=== PATIENT | female | born 1935 | race Caucasian/White ===

== ENCOUNTER → 2020-12-04 12:30 | Outpatient (BNVA) | payer MEDICARE, SELFPAY | PROVIDERS: Family Provider Family Medicine; PCP Family Medicine; Visit Provider Internal Medicine Cardiovascular Disease | DX: E78.5 Hyperlipidemia, unspecified (principal); I10 Essential (primary) hypertension; I25.10 Atherosclerotic heart disease of native coronary artery without angina pectoris | CPT/HCPCS: 80053; 83735; 83880; 84443; 85025 ==

== ENCOUNTER 2021-01-02 08:06 | Outpatient (CLI) | payer MEDICARE, SELFPAY ==
--- NOTE | 2021-01-02 08:45 | USCV_ITS ---
Sebastian Mike Age: 85 Gender: F : 1935 Exam Date: 01/02/2021 09:34 Ordering Phys: Jami Gomez MD ([email or web address]) Technologist: Sandy Velez [place] [facility] [place]ication: ESSENTIAL HYPERTENSION BP: 156 / 72 HR: 60 Rhythm: Sinus Technical Quality: Adequate MEASUREMENTS (Male / Female) Normal Values 2D ECHO LV Diastolic Diameter PLAX 4.0 cm 4.2 - 5.9 / 3.9 - 5.3 cm LV Systolic Diameter PLAX 2.6 cm IVS Diastolic Thickness 1.5 cm 0.6 - 1.0 / 0.6 - 0.9 cm IVS Systolic Thickness 1.7 cm LVPW Diastolic Thickness 1.6 cm 0.6 - 1.0 / 0.6 - 0.9 cm LVPW Systolic Thickness 2.0 cm RV Chamber Size 2.9 cm LVOT Diameter 2.0 cm LV Ejection Fraction 2D Teich 64.9 % LV Ejection Fraction MOD 2C 67.2 % LV Ejection Fraction 2C AL 69.7 % LA Diameter 3.8 cm LA Width 3.7 cm LA Height 5.0 cm RA Width 2.9 cm RA Height 3.7 cm Aorta at Sinotubular Diameter 2.0 cm DOPPLER AV Peak Velocity 343.0 cm/s LVOT Peak Velocity 84.0 cm/s AV Area Cont Eq vti 1.0 cm squared AV Area Cont Eq pk 0.8 cm squared MV Area PHT 2.6 cm squared Mitral E to A Ratio 0.7 MV E' Velocity 40.0 cm/s Mitral E to MV E' Ratio 13.9 Mitral E to LV E' Lateral Ratio 10.5 Mitral E to LV E' Septal Ratio 20.7 TR Peak Velocity 240.0 cm/s TR Peak Gradient 23.0 mmHg TV Peak E Velocity 56.0 cm/s Right Atrial Pressure 3.0 mmHg Pulmonary Artery Systolic Pressu 26.0 mmHg PV Peak Velocity 101.0 cm/s RV Acceleration Time 0.1 s RV Ejection Time 0.4 s RV AcT/ET 0.3 FINDINGS Left Ventricle Normal left ventricular cavity size. Increased left ventricular wall thickness. Moderate concentric left ventricular hypertrophy. Normal left ventricular systolic function. Left ventricular ejection fraction is estimated at 65-70 %. Although no diagnostic regional wall motion abnormality could be identified, this possibility cannot be completely excluded based on the study. Grade I diastolic dysfunction (abnormal relaxation filling pattern), normal to mildly elevated filling pressures. Abnormal septal motion consistent with pacemaker. Right Ventricle Normal right ventricular size and systolic function. Right ventricular systolic pressure 31 mmHg. Pacemaker wire visualized in the right ventricle. Right Atrium Normal right atrial size. Right atrial pressure estimated at 3 mmHg. Left Atrium Mildly increased left atrial size. Mitral Valve Moderate mitral annular calcification. Aortic Valve Moderately thickened and calcified aortic valve. Moderate aortic valve stenosis, peak velocity 3.5 m/s, peak gradient 49 mmHg, mean gradient 29 mmHg, MYRNA 1 cm squared. Trace aortic valve regurgitation. Tricuspid Valve Structurally normal tricuspid valve. No tricuspid valve stenosis. Trace to mild tricuspid valve regurgitation. Pulmonic Valve Structurally normal pulmonic valve. No pulmonary valve stenosis. Trace pulmonary valve regurgitation. Pericardium No pericardial effusion. Aorta Normal size aortic root and proximal ascending aorta. Normal- sized inferior vena cava. CONCLUSIONS 1. Normal left ventricular cavity size.Moderate concentric left ventricular hypertrophy. Normal left ventricular systolic function. Left ventricular ejection fraction is estimated at 65- 70 %. Although no diagnostic regional wall motion abnormality could be identified, this possibility cannot be completely excluded based on the study. Grade I diastolic dysfunction (abnormal relaxation filling pattern), normal to mildly elevated filling pressures. 2. Moderate aortic valve stenosis, peak velocity 3.5 m/s, peak gradient 49 mmHg, mean gradient 29 mmHg, MYRNA 1 cm squared. Trace aortic valve regurgitation. 3. Normal right ventricular size and systolic function. 4. When compared to previous study dated 10/05/2013, aortic stenosis has worsened. Jami Gomez MD (Electronically Signed) Final Date: 04 January 2021 15:29 S
--- NOTE | 2021-01-02 09:30 | USCV_ITS ---
Sebastian Mike Age: 85 Gender: F : 1935 Exam Date: 01/02/2021 08:52 Ordering Phys: Jami Gomez MD ([email or web address]) Technologist: Sandy Velez [place] [facility] [place]: UNSPECIFIED LEG PAIN Risk Factors: Previous Vascular Surgery: RIGHT LEFT BP: 156.0 / 72.00 BP: 142.0/ 84.00 0 0 Waveform Velocity (cm/s) Velocity (cm/s) Waveform Biphasic 89.3 Iliac Prox 175.8 Biphasic Biphasic 95.0 Iliac Mid 178.0 Biphasic Biphasic 116.8 Iliac Distal 162.6 Biphasic Biphasic 116.0 AIRCRAFT REFUELER 104.1 Biphasic Biphasic 76.1 SFA Prox 141.0 Biphasic Biphasic 108.5 SFA Mid 134.9 Biphasic Biphasic SFA Dist Biphasic 87.1 98.4 Monophasic 36.8 POP 92.7 Biphasic Monophasic 31.9 OB/GYN NURSE 27.8 Monophasic Monophasic 24.4 DPA 45.6 Monophasic 0.8 SERGO 1.1 FINDINGS RT OB/GYN NURSE 124 RT DPA NC DUE TO PT PAIN LT OB/GYN NURSE 160 LT DPA 170 Mild to moderate diffuse plaques in the iliac and femoral arteries bilaterally Diminished resting SERGO of 0.8 on the right side with a normal resting SERGO of 1.1 on the left side CONCLUSIONS 1. Mild to moderate diffuse plaques in the iliac and femoral arteries bilaterally. 2. Slightly diminished resting SERGO on the right side, suggestive of mild peripheral artery disease. 3. Normal resting SERGO on the left side, suggesting no significant arterial obstruction 4. Compared to the study from 07/28/2017, there is significant improvement of the SERGO on the left side Dr Napoleon Campbell MD [facility] (Electronically Signed) Final Date: 04 January 2021 21:48 S
--- NOTE | 2021-01-02 10:15 | USCV_ITS ---
Sebastian Mike Age: 85 Gender: F : 1935 Exam Date: 01/02/2021 08:25 Ordering Phys: Jami Gomez MD ([email or web address]) Technologist: Sandy Velez [place] [facility] [place]ication: OCCLUSION AND STENOSIS OF CAROTID ARTERIES Risk Factors: Previous Vascular Surgery: Right Brachial BP: / Left Brachial BP: / Right Left Velocity (cm/s) Spectral Plaque Velocity (cm/s) Spectral Plaque Syst/Diast Broadening Syst/Diast Broadening 75.30/ 8.80 Prox CCA 52.50 / 8.60 84.20/ 11.60 Mid CCA 66.80 / 10.80 67.30/ 11.00 Distal CCA 73.80 / 11.70 133.63/23.83 Prox ICA 110.40/ 15.80 146.00/18.60 Mid ICA 102.50/ 19.70 116.50/20.20 Distal ICA 90.70 / 15.80 122.60 ECA 249.00 1.74 ICA/CCA 1.65 Antegrade Vertebral Antegrade 51.30/ 9.30 cm/s 32.90/ 5.90 cm/s Bi Subclavian Bi 129.5 268.6 0 0 FINDINGS Moderate dense plaques of the right bifurcation and proximal lower carotid artery. Mild to moderate dense plaques at the left bifurcation and internal carotid artery Intimal thickening and minimal plaques in the common carotid arteries bilaterally Antegrade flow in the vertebral arteries bilaterally Elevated velocity flow turbulence in the left subclavian artery CONCLUSIONS 1. Moderate dense plaques of the right bifurcation and proximal lower carotid artery with elevated velocity, consistent with a 50 to 69% stenosis. 2. Mild to moderate dense plaques at the left bifurcation and internal carotid artery with velocity elevation, consistent with less than 50% stenosis. 3. Elevated velocity in the external carotid artery on the left side, suggestive of hemodynamically significant stenosis. 4. Elevated velocity and flow turbulence in the left subclavian artery, suggestive of hemodynamically significant stenosis No similar previous studies are available for comparison Dr Napoleon Campbell MD [facility] (Electronically Signed) Final Date: 04 January 2021 21:43 S
== END 2021-01-02 08:07 | disposition home or self-care (01) ==
PROVIDERS: PCP Family Medicine; Visit Provider Internal Medicine Cardiovascular Disease
DX: M79.606 Pain in leg, unspecified (principal); I65.23 Occlusion and stenosis of bilateral carotid arteries; I10 Essential (primary) hypertension; I50.9 Heart failure, unspecified; I35.0 Nonrheumatic aortic (valve) stenosis; I70.8 Atherosclerosis of other arteries
CPT/HCPCS: 93306; 93880; 93925

== ENCOUNTER → 2021-06-04 11:01 | Outpatient (BNVA) | payer MEDICARE, SELFPAY | PROVIDERS: PCP Family Medicine; Visit Provider Internal Medicine Cardiovascular Disease | DX: Z95.0 Presence of cardiac pacemaker (principal) ==

== ENCOUNTER 2021-07-06 | Outpatient (CLI) | payer MEDICARE, SELFPAY | END 2021-07-06 23:59 | disposition home or self-care (01) | LOC: RAD 11-02 14:24 | PROVIDERS: PCP Family Medicine; Visit Provider Internal Medicine Cardiovascular Disease | DX: I13.0 Hypertensive heart and chronic kidney disease with heart failure and stage 1 through stage 4 chronic kidney disease, or unspecified chronic kidney disease (principal); E11.22 Type 2 diabetes mellitus with diabetic chronic kidney disease; N18.9 Chronic kidney disease, unspecified; I50.9 Heart failure, unspecified; Z79.84 Long term (current) use of oral hypoglycemic drugs; I35.0 Nonrheumatic aortic (valve) stenosis; Z95.1 Presence of aortocoronary bypass graft; Z95.0 Presence of cardiac pacemaker | CPT/HCPCS: 99214 ==

== ENCOUNTER → 2021-07-06 13:00 | Outpatient (BNVA) | payer MEDICARE, SELFPAY | PROVIDERS: PCP Family Medicine; Visit Provider Internal Medicine Cardiovascular Disease | DX: I35.0 Nonrheumatic aortic (valve) stenosis (principal); E78.5 Hyperlipidemia, unspecified; I10 Essential (primary) hypertension | CPT/HCPCS: C8929 ==

== ENCOUNTER → 2021-08-06 09:27 | Outpatient (BNVA) | payer MEDICARE, SELFPAY | PROVIDERS: PCP Family Medicine; Visit Provider Internal Medicine Cardiovascular Disease | DX: I35.0 Nonrheumatic aortic (valve) stenosis (principal); I50.9 Heart failure, unspecified | CPT/HCPCS: 80048; 85025; 85610 ==

== ENCOUNTER 2021-08-11 07:11 | Outpatient (CLI) | payer MEDICARE, SELFPAY ==
[2021-08-11] VITALS (50 sets, daily range): BP systolic 108–216; BP diastolic 46–102; PULSE 62–102; RESP 16–33; TEMP 36.6–36.9; O2SAT 93–99; BMI 26.8
--- NOTE | 2021-08-11 07:30 | XACV_ITS ---
Exam Room: [facility] Ht: 165 cm Wt: 73 kg BSA: 1.85 m2 Gender: Female : 1935 Any Known Allergies: Other Exam Priority: Routine Procedure(s): Procedure Description: Diagnostic procedure Procedure Description: PCI procedure Procedure Description: Left Heart Catheterization Procedure Description: Drug Eluting Coronary Stent Procedure Description: Miscellaneous Procedure Description: ACT Procedure Description: Coronary Angiography Diagnostic Cath Status: Elective Diagnostic Findings * Right heart cath findings: RA pressure: 9/13/9 mmHg RV pressure: 58/0 /10 mmHg PA pressure: 44/20/31 mmHg PCW: 20/18/16 mmHg Transpulmonary gradient: 15 mmHg Cardiac output 8 L/min Cardiac index 4.1 PVR: 2 Wood units. * Left main artery: No significant disease LAD: Mid vessel is totally occluded. Distally competitive flow noted from GOLD Left circumflex artery: Occluded in distal segment RCA: Occluded SVG to RCA: Patent SVG to OM: Has severe proximal 70% proximal stenosis. Severe 70 to 80% mid segment stenosis. Status post successful revascularization with RIO x2. GOLD to LAD: Patent . * INDICATION: Dyspnea on exertion/ chest pain. * Coronary angiography shows right dominance. PCI Status: Elective PCI Indication: Other Interventional Findings * Procedure detail: We engaged SVG to OM with JR4 guide catheter. IV heparin was administered to maintain ACT above 250S. 0.014 run-through guidewire was used to cross the stenosis. We placed a 3.0 x 18 mm resolute Marium drug-eluting stent in mid SVG graft. Ostially guide engagement was causing pressure dampening. We placed 3.0X12 mm resolute [place] stent in ostial SVG. At this time final angiogram was performed that showed excellent stent expansion and no residual stenosis. 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 Conclusions 1. Left main artery: No significant disease LAD: Mid vessel is totally occluded. Distally competitive flow noted from GOLD Left circumflex artery: Occluded in distal segment RCA: Occluded SVG to RCA: Patent SVG to OM: Has severe proximal 70% proximal stenosis. Severe 70 to 80% mid segment stenosis. Status post successful revascularization with RIO x2. GOLD to LAD: Patent . 2. Mild pulmonary hypertension. 3. Severe proximal and mid SVG to OM stenosis s/p successful PCI with RIO x 2. Recommendations * Aspirin and plavix for at least 1 year. * Transfer to [facility]. * High intensity statin therapy. * Outpatient cardiology follow up in 4 weeks. Interventional RX Recommendation: PCI w/o planned CABG Diagnostic RX Recommendation: PCI w/o planned CABG Anticoagulation: Heparin Pressures Phase:Rest AO : 150 / 57 ( 97 ) @ 11:11:00 AM 132 / 62 ( 95 ) @ 11:22:00 AM 118 / 51 ( 81 ) @ 11:44:00 AM 119 / 45 ( 77 ) @ 12:00:00 PM 132 / 33 ( 73 ) @ 12:00:00 PM LV : 169 / -7 / 7 @ 11:59:00 AM 170 / -7 / 8 @ 12:00:00 PM RV : 58 / 0 / 10 @ 10:59:00 AM PA : 44 / 21 ( 31 ) @ 10:56:00 AM RA : a wave = 9 v wave = 13 mean = 9 @ 11:02:00 AM PCW : a wave = 20 v wave = 18 mean = 16 @ 10:55:00 AM O2 Content Phase:Rest PA : O2 Content O2: 81.5 @ 11:11:00 AM Saturations Phase:Rest AO : 97 @ 11:59:00 AM RA : 83 @ 11:44:00 AM RV : 82 @ 11:22:00 AM PA : 82 @ 11:11:00 AM IVC : 84 @ 12:00:00 PM SVC : 84 @ 12:00:00 PM Cardiac Output Phase:Rest Tabatha : 6 @ ::41 AM Tabatha Cardiac Index: 3 @ ::41 AM Flow Phase:Rest Qp : 6 @ ::41 AM Qs : 7 @ ::41 AM Valves Phase:DefaultPhase AV : 50.0 @ ::41 AM AV Mean Gradient: 32.0 @ ::41 AM AV Flow: 224 @ :: AM AV Area: 0.9 @ ::41 AM AV Area Index: 0.49 @ ::41 AM Clinical Evaluation EBL: 5mL-10mL Procedural Details Procedure Consent Obtained. Admit Source: Out Patient. Pre-Procedure Time Out. Identified patient by full name and date of as verbalized by the patient/guarantor. Does the consent match the physician's order: Yes. Accurate & Complete Informed Consent: Yes. Inpatient/Outpatient History & Physical on Chart: Yes. If H&P is completed, is and addenduem needed: N/A; If yes, is the addendum complete: N/A. Visualize and Verify Site with Patient/Guarantor: N/A. Relevant Radiology Images available: N/A. Pre-op teaching completed and patient verbalized understanding. The risks, benefits, and alternatives of sedation and/or procedure were discussed by physician. The patient agrees to continue. Procedure started. [facility] Clinical Fraility Score: 3: Managing Well. 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 Chest Pain Symptom Assessment: Atypical Angina. Correct patient, site and procedure confirmed by cath team. Current diagnosis: Chest Pain. PERRLA. Strong, equal hand facility technician bilaterally. Lungs clear x 5 lobes. IV Site on Arrival: 20 gauge in the left anticubital. IV Fluids: 0.9% NaCl at KVO. 0 mL infused prior to produce laborer. Pre Procedural Pulses: bilateral dorsalis pedis was 1+. Pre Procedural Pulses: bilateral radial was 2+. Oxygen started at 2liters/min via nasal canula. left groin was prepped with chloroprep then draped in the usual sterile fashion. right groin was prepped with chloroprep then draped in the usual sterile fashion. Physician notified. Baseline sample Acquired. HR: 77 BPM. Physician arrived. Physician scrubbed in. Immediate Pre-Procedure Time Out. Correct Patient: Yes; Correct Procedure: Yes; Correct Site: Yes; Correct Patient Position: Yes; Correct Supplies: Yes; Dried Flammable Prep: Yes; Blood Products Available: n/a. Lidocaine 1% infiltrated to the right groin. Arterial access obtained with micropuncture set. Venous access obtained with a micropuncture set. Goodman-Tona MON catheter inserted. Goodman Mon positioned in the SVC. Pressure measurements obtained. Goodman-Tona out. A 5 portuguese JL4 catheter in over wire. Multiple views taken of left coronary artery. Catheter out. A 5 portuguese JR4 catheter in over wire. Multiple views taken of right coronary artery. [place] right vessel closed. SVG's to OM visualized and patent. SVG's to RCA visualized and patent. GOLD to LAD visualized. Catheter out. 6 portuguese JR 4 guide catheter was inserted over the wire. Runthrough guidewire was advanced through the guide catheter to lesion in the SVG to OM. Inflation Number : 1 A LAURYN R MARIUM 3.0X18 RIO -Lot Number# [id number] Exp 12/27/2023 was prepped and advanced across the Aorta Left -> 1st Ob Tati. The stent was deployed at 12 AGUEDA for 0:25 seconds. Stent inserted to lesion in the OM. Stent balloon out over wire. Results checked. Wire out. Runthrough guidewire was advanced through the guide catheter to lesion in the OM. Stent inserted to lesion in the SVG to OM. Inflation Number : 2 A MDT R MARIUM 3.0X12 RIO -Lot Number# [id number] Exp 09/11/2023 was prepped and advanced across the Aorta Left -> 1st Ob Tati. The stent was deployed at 12 AGUEDA for 0:18 seconds. Stent balloon out over wire. Results checked. Glidewire inserted. Wire and catheter removed. ACT drawn. Results 332 seconds. Therapeutic limits - pre-heparin administration 90-150 seconds and monitoring heparin during a vascular procedure >250 seconds. A 5 portuguese JR4 catheter in over wire. Catheter out. A 5 portuguese AL1 catheter in over wire. Catheter out. A 5 portuguese Angled Pig catheter in over wire. Catheter out. A 5 portuguese JR4 catheter in over wire. Wire removed. EDP Sample taken: LV 169/-8,7; HR: 85 BPM; SpO2: 93%. Pullback taken: LV 170/-8,8; AO 119/45(77); Mean: 32mmHg, Peak to Peak: 50mmHg, SEP: 26sec/min; HR: 85 BPM; SpO2: 94%. ACT drawn. Results 250 seconds. Therapeutic limits - pre-heparin administration 90-150 seconds and monitoring heparin during a vascular procedure >250 seconds. Catheter and wire removed. A Suture was successful obtaining hemostatsis at the Right Femoral vein insertion site. Post Procedure: Pulses reassessed and unchanged. PERRLA. Strong, equal hand facility technician bilaterally. No VTE prophylaxis required. PCI Indication: New Onset Angina. Total IV fluids: 143 mL. Medication's Wasted: Heparin = 1000 u. Medication's Wasted: Lidocaine 1% = 3 mL. Medication's Wasted: Other = Fentanyl 75 mcg. Post-op diagnosis: Severe SVG to OM stenosis, Moderate to severe aortic stenosis. Complications: none. Estimated blood loss: 5mL-10mL. Responsiveness - Normal response to verbal stimuli; alert and oriented, PERRLA. Airway - Unaffected, no intervention required; spontaneous ventilation. Circulation: W/N/L, pulses unchanged. Nausea/Vomiting: No. Procedure completed. Patient transferred by bed to ICU. Vital chart was stopped. Access Site Site: Right Femoral artery Sheath Size: 6 Fr Hemostasis Success: Unsuccessful Site: Right Femoral vein Sheath Size: 6 Fr Hemostasis Method: Suture Hemostasis Success: Successful Procedure Medications Start: 9:20 AM Stop: 9:20 AM Medication: Versed Amount: 1 mg Route: I.V. Start: 9:20 AM Stop: 9:20 AM Medication: Fentanyl Amount: 50 mcg Route: I.V. Start: 9:20 AM Stop: 9:20 AM Medication: 0.9% Saline Amount: 75 ml/hr Route: I.V. drip Start: 9:32 AM Stop: 9:32 AM Medication: Hydralazine Amount: 10 mg Route: I.V. Start: 9:34 AM Stop: 9:34 AM Medication: Versed Amount: 1 mg Route: I.V. Start: 9:36 AM Stop: 9:36 AM Medication: Fentanyl Amount: 25 mcg Route: I.V. Start: 9:39 AM Stop: 9:39 AM Medication: Hydralazine Amount: 10 mg Route: I.V. Start: 9:59 AM Stop: 9:59 AM Medication: Versed Amount: 1 mg Route: I.V. Start: 10:11 AM Stop: 10:11 AM Medication: Versed Amount: 1 mg Route: I.V. Start: 10:27 AM Stop: 10:27 AM Medication: Fentanyl Amount: 25 mcg Route: I.V. Start: 10:30 AM Stop: 10:30 AM Medication: Versed Amount: 1 mg Route: I.V. Start: 10:33 AM Stop: 10:33 AM Medication: Nitrogylcerin Amount: 2 Sprays Route: S.L. Start: 10:39 AM Stop: 10:39 AM Medication: Heparin Amount: 7000 units Route: I.V. Start: 10:47 AM Stop: 10:47 AM Medication: Versed Amount: 1 mg Route: I.V. Start: 10:55 AM Stop: 10:55 AM Medication: Fentanyl Amount: 25 mcg Route: I.V. Start: 11:04 AM Stop: 11:04 AM Medication: Heparin Amount: 1000 units Route: I.V. Start: 11:08 AM Stop: 11:08 AM Medication: Plavix Amount: 600 mg Route: P.O. I, the attending physician, have reviewed and verified all procedure medications. Yes, all medications given per verbal order History/Risk Factors Hypertension: Yes Dyslipidemia: Yes Peripheral Arterial Disease (PAD): Yes Myocardial Infarction (ID): Yes Obesity: No Renal Disease: No Prior Interventions PCI: No CABG: No Valve Surgery: No Report Signatures Finalized by Andrew Chang MD on 08/26/2021 08:36 PM
--- NOTE | 2021-08-11 08:56 | W.PM.OPSFHP ---
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 She complains of exertional shortness of breath and intermittent chest pains. Medications/Allergies* Home Medications Medication Instructions Recorded Confirmed Type lisinopril 10 mg tablet 10 mg PO DAILY 06/17/19 08/11/21 History loperamide 2 mg capsule 2 mg PO Q4H PRN 06/17/19 08/10/21 History metoprolol tartrate 25 mg tablet 25 mg PO BID 06/17/19 08/11/21 History furosemide 40 mg tablet 20 mg PO DAILY tab 07/06/21 08/11/21 History glipizide 5 mg tablet 7.5 mg PO DIRECTED tab 07/06/21 08/11/21 History Allergies/Adverse Reactions Allergy/AdvReac Type Severity Reaction Status Date / Time Iodinated Contrast Media Allergy Unknown Unknown Verified 03/05/21 10:30 iodine Allergy Unknown Unknown Verified 03/05/21 10:30 Lgrinml-DLA-TcA Reductase Allergy Unknown Unknown Verified 03/05/21 10:30 Inhibitor [Frwyhfg-Ngb-Rrz Reductase Inhibitor] Current Medications: Generic Name Dose Route Start Last Admin Trade Name Freq PRN Reason Stop Dose Admin Sodium Chloride 1,000 mls @ 50 mls/hr 08/11/21 07:30 08/11/21 08:41 Sodium Chloride 0.9% IV 08/12/21 03:29 Not Given .Q20H ONE Pertinent History/Comorbid Conditions* Medical History (Updated 12/05/20 @ 20:11 by Jami Gomez MD) Aortic stenosis ASHD (arteriosclerotic heart disease) Carotid stenosis, bilateral CKD (chronic kidney disease) Diabetes Dyslipidemia Essential hypertension History of colon cancer Left bundle branch block Peripheral arterial disease Renal artery stenosis Second degree AV block, Mobitz type II Surgical History (Updated 06/07/20 @ 16:03 by Jami Gomez MD) S/P CABG (coronary artery bypass graft) S/P cholecystectomy S/P hysterectomy S/P PTCA (percutaneous transluminal coronary angioplasty) Status cardiac pacemaker Status post tubal ligation Family History (Updated 06/17/19 @ 11:25 by Amanda Gomez RN) Diabetes Grandfather CAD (coronary artery disease) Hypertension Daughter Social History Smoking and tobacco status: never smoked Pertinent Exam Findings alert, oriented x 3, clear to auscultation bilaterally and regular rate & rhythm Conscious Sedation Assessment PATIENT ASSESSED PRIOR TO SEDATION, WITH NO CHANGE NOTED: Yes AIRWAY EVAL/ANESTHESIA PLAN: normal airway (Airway 2), ASA III, Monitored Anesthesia and Local Anesthesia Recommendations Surgery/Procedure today Coding Level of Care Code Acute University Administrative Assistant for Joe Barron
[2021-08-11] MEDS: nitroglycerin drip 50 MG/250 ML PREMIX IV (12:09)
[2021-08-11 16:30] LABS: Glucose Point of Care 291 mg/dL (70-110)
[2021-08-11 17:36] LABS: Partial Thromboplastin Time 44.7 SECONDS (23.9-36.7)
[2021-08-11] MEDS: insulin lispro 100 unit/1 mL SUBCUT (17:36)
--- NOTE | 2021-08-11 19:01 | PC.NURSE ---
Venous and artiral sheath remove at this time
[2021-08-11] MEDS: metoprolol tartrate 25 mg Tablet PO (20:17)
[2021-08-11 20:22] LABS: Glucose Point of Care 270 mg/dL (70-110)
--- NOTE | 2021-08-11 20:50 | PC.NURSE ---
1,000 mL NS bag infused at this time.
[2021-08-12 00:03] VITALS: BP 122/45; PULSE 60; RESP 18; O2SAT 95
--- NOTE | 2021-08-12 00:10 | PC.NURSE ---
Patient ambulated with nurse. VSS. Dressing to right groin dry and intact. No hematoma noted at this time. Distal pulses and skin WNL.
[2021-08-12 02:58] VITALS: BP 125/53; PULSE 68; RESP 15; O2SAT 96
[2021-08-12 03:55] VITALS: PULSE 61
[2021-08-12 06:10] LABS: Basophils % 0.2 %; Eosinophils % 0.2 %; Hematocrit 35.5 % (37.0-47.0); Hemoglobin 11.4 g/dL (11.5-15.3); Lymphocytes # 2.1 10^3/uL (0.8-4.8); Lymphocytes % 16.7 %; Mean Corpuscular HGB Conc 32.1 g/dL (30.0-36.0); Mean Corpuscular Hemoglobin 28.9 pg (28.0-34.0); Mean Corpuscular Volume 89.9 fl (81-99); Mean Platelet Volume 10.8 fL (7.4-10.4); Monocytes # 1.2 10^3/uL (0.2-0.9); Monocytes % 9.2 %; Neutrophils % 73.2 %; Nucleated Red Blood Cells % 0 %; Platelet Count 232 10^3/cmm (130-400); Red Blood Count 3.95 10^6/uL (4.1-5.3); Red Cell Distribution Width 14.3 % (12.1-15.1); White Blood Count 12.6 10^3/uL (4.0-10.0)
[2021-08-12 06:21] LABS: Glucose Point of Care 192 mg/dL (70-110)
[2021-08-12 06:28] LABS: Anion Gap 13.4 (5-19); Blood Urea Nitrogen 43 mg/dL (8-23); Calcium 8.9 mg/dL (8.5-10.5); Carbon Dioxide 22 mmol/L (22-29); Chloride 108 mmol/L (98-107); Cholesterol 162 mg/dL (0-200); Glucose 189 mg/dL (65-115); HDL Cholesterol 45 mg/dL (60-100); LDL Cholesterol Calculated 81 mg/dL (50-129); Magnesium 2.2 mg/dL (1.7-2.3); Osmolality Calculated 304 mOsm/kg (285-295); Potassium 4.4 mmol/L (3.5-5.1); Sodium 139 mmol/L (136-145); Triglycerides 178 mg/dL (0-150)
[2021-08-12 07:04] VITALS: BP 147/57; PULSE 62; RESP 18; TEMP 36.7; O2SAT 96
[2021-08-12 08:29] LABS: Estmated Average Glucose 160; Hemoglobin A1C 7.2 % (4.0-6.0)
[2021-08-12] MEDS: clopidogrel 75 mg Tablet PO (09:13)
[2021-08-12] MEDS: aspirin 81 mg Chew Tablet PO (09:13)
[2021-08-12] MEDS: metoprolol tartrate 25 mg Tablet PO (09:13)
[2021-08-12] MEDS: ezetimibe 10 mg Tablet PO (09:13)
--- NOTE | 2021-08-12 09:30 | PM.SDS ---
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 She complains of exertional shortness of breath and intermittent chest pains. Review of Systems Const: Reports: fatigue (increased); Denies: fever(s) or chills Eyes: Denies: change in vision Card: Reports: lightheadedness and dyspnea on exertion (increased); Denies: chest pain, palpitations, swelling of feet/ankles or orthopnea Resp: Denies: dyspnea, productive cough or non-productive cough GI: Denies: abdominal pain, nausea or vomiting Musc: Reports: neck pain and joint pain; Denies: back pain Neuro: Denies: headache(s) or dizziness Psych: Denies: anxiety or depression Sunil/Lymph: Reports: easy bruising; Denies: easy bleeding Home Meds/Allergies Home Medications and Allergies Home Medications Medication Instructions Recorded Confirmed Type lisinopril 10 mg tablet 10 mg PO DAILY 06/17/19 08/11/21 History loperamide 2 mg capsule 2 mg PO Q4H PRN 06/17/19 08/10/21 History metoprolol tartrate 25 mg tablet 25 mg PO BID 06/17/19 08/11/21 History furosemide 40 mg tablet 20 mg PO DAILY tab 07/06/21 08/11/21 History glipizide 5 mg tablet 7.5 mg PO DIRECTED tab 07/06/21 08/11/21 History Allergies Allergy/AdvReac Type Severity Reaction Status Date / Time Iodinated Contrast Media Allergy Unknown Unknown Verified 03/05/21 10:30 iodine Allergy Unknown Unknown Verified 03/05/21 10:30 Lrswmfp-LAT-RqJ Reductase Allergy Unknown Unknown Verified 03/05/21 10:30 Inhibitor [Gzrfurl-Duz-Oxi Reductase Inhibitor] PFSH Acute PFSH: Medical History Aortic stenosis ASHD (arteriosclerotic heart disease) Carotid stenosis, bilateral CKD (chronic kidney disease) Diabetes Dyslipidemia Essential hypertension History of colon cancer Left bundle branch block Peripheral arterial disease Renal artery stenosis Second degree AV block, Mobitz type II Surgical History S/P CABG (coronary artery bypass graft) S/P cholecystectomy S/P hysterectomy S/P PTCA (percutaneous transluminal coronary angioplasty) Status cardiac pacemaker Status post tubal ligation Family History Grandfather Diabetes Daughter Hypertension Other CAD (coronary artery disease) Social History Smoking and tobacco status: never smoked Vitals/I&O/Wt Last Vital Signs Temp 98.0 F 08/12/21 07:04 Pulse 62 08/12/21 07:04 Resp 18 08/12/21 07:04 BP 147/57 08/12/21 07:04 Pulse Ox 96 08/12/21 07:04 08/11/21 08/12/21 08/12/21 22:59 06:59 14:59 Intake Total 253 / 493 200 / 693 Output Total 800 / 800 Balance -547 / -307 200 / -107 Weight last 48 hrs Weight 161 lb Physical Exam Narrative: GENERAL: AAOx3, No FND HEENT: Exam within normal limits. NECK: Supple without jugular vein distention. The carotid upstroke is normal without bruits. BACK: Exam normal. LUNGS: Clear except basal final rales bilaterally. No wheezez or rales HEART: Regular rate and rhythm.? Grade 3/6 harsh cresendo systolic murmur with radiation to carotids. soft S2 ABDOMEN: Benign without organomegaly or tenderness. EXTREMITIES: No edema.? 1+ DP and PT in the lower extremities, Right groin with no significant bruising or hematoma NEUROLOGIC: Exam normal. Hospital Course Hospital Course Patient underwent left and right heart cathetarization. She underwent RIO placement to SVG to OM graft. GOLD to LAD and SVG to PDA were patent. Mean gradient through AV of 32 mm Hg. She did well overnight. No jaw/chest pain. Discharge Summary She was started on plavix 75 mg daily and zetia 10 mg daily. Lipid panel and HbA1C reviewed with patient. Plan to follow up with Adriana in 1 week and plan to refer her for TAVR at [place]. SSS Data Data Completed and Pending: Pending at discharge Category Date Time Status MULTIMEDIA EDUCATIONAL SPECIALIST request for service Routin e Exams 08/11/21 07:30 Taken Discharge Plan Discharge Patient Disposition: Home Prescriptions: New clopidogrel 75 mg Tablet 75 mg PO DAILY Qty: 90 2RF nitroglycerin 0.4 mg Tablet, Sublingual 0.4 mg sublingual Q5M PRN (Reason: Chest Pain) Qty: 30 6RF Children's Aspirin 81 mg Tablet,Chewable 81 mg PO DAILY Qty: 30 6RF ezetimibe 10 mg Tablet 10 mg PO DAILY Qty: 30 3RF Continued metoprolol tartrate 25 mg tablet 25 mg PO BID 0RF lisinopril 10 mg tablet 10 mg PO DAILY 0RF loperamide 2 mg capsule 2 mg PO Q4H PRN (Reason: Diarrhea) 0RF furosemide 40 mg tablet 20 mg PO DAILY 0RF glipizide 5 mg tablet 7.5 mg PO DIRECTED 0RF Rx Instructions: 5mg in AM and 2.5mg HS Discontinued diphenhydramine HCl [Benadryl Allergy] 25 mg tablet 25 mg PO DIRECTED PRN (Reason: Dye allergy) Qty: 2 0RF Rx Instructions: Take 50mg (2 tabs) 1 hr before angiogram prednisone 50 mg tablet 50 mg PO DIRECTED PRN (Reason: Dye allergy) Qty: 6 0RF Rx Instructions: Take 50mg (1 tab) 13hrs, 7hrs, & 1hr prior to angiogram Discharge Orders: Discharge Order (Routine); Ordered 08/12/21 Ordered By: Jami Gomez Other Ambulatory Orders: Basic Metabolic Panel (Routine) Timeframe: 1 Week Facility: [facility] - Location: Lab - Main Lab Ordered By: Jami Gomez Referrals: Adriana Guerra FNP [Nurse Practitioner] - 08/19/21 2:30 pm (You have a post procedure follow up with ARIEL Dobson at [facility] on August 19 at 2:30pm) Jami Gomez MD [Physician] - 10/05/21 2:30 pm (You have a cardiology followup with Dr. Gomez at [facility] on MondayOctober 05 at 2:30pm) Diet: Cardiac Activity: Increase activity as tolerated Patient Instructions: Aspirin (By mouth) (Magdalena Extra Strength, Magdalena Aspirin Children's,..., Nitroglycerin, Rapid Release (By mouth) (NitroMist, Nitrolingual,..., Clopidogrel (By mouth) (Plavix), Ezetimibe (By mouth) (Zetia), Coronary Angioplasty (DC) Activity Restrictions/Additional Instructions: Do not lift anything more than 5 lbs for 1 week. Keep the site dry and clean Take medications as prescribed and follow up as scheduled. Discharge Date/Time: 08/12/21 11:30 Attestations Medical Necessity Statement*: Stable to be discharged home Time Spent in Patient Care*: less than 30 min Quality Metrics Clinical Quality Measures: [ No reported AMI, CVA or VTE this stay] Coding Level of Care Code Acute Physician Surgeon for Joe Barron
--- NOTE | 2021-08-12 11:31 | PC.NURSE ---
Discharge Note Patient discharged to Home via private vehicle accompanied by son. 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 Mobile pharmacy medications and/or prescriptions provided. Belongings/home medications returned.
== END 2021-08-12 11:30 | disposition home or self-care (01) ==
LOC: CCL 07:18 → CSU 08:23
PROVIDERS: Internal Medicine; PCP Family Medicine; Visit Provider Internal Medicine Cardiovascular Disease
DX: R06.02 Shortness of breath (principal); R07.9 Chest pain, unspecified; E78.5 Hyperlipidemia, unspecified; I44.7 Left bundle-branch block, unspecified; I25.10 Atherosclerotic heart disease of native coronary artery without angina pectoris; Z95.1 Presence of aortocoronary bypass graft; Z95.0 Presence of cardiac pacemaker; E11.22 Type 2 diabetes mellitus with diabetic chronic kidney disease; I12.9 Hypertensive chronic kidney disease with stage 1 through stage 4 chronic kidney disease, or unspecified chronic kidney disease; N18.9 Chronic kidney disease, unspecified; Z85.038 Personal history of other malignant neoplasm of large intestine; Z82.49 Family history of ischemic heart disease and other diseases of the circulatory system; Z83.3 Family history of diabetes mellitus
CPT/HCPCS: 36415; 36416; 80048; 80061; 82962; 83036; 83735; 85025; 85347; 85730; 93461; 96360; 96361; 96372; 99152; 99153; C1751; C1769; C1874; C1887; C1894; C9600; J0360; J1644; J1815; J2250; J3010; J3490; J7030; Q9967

== ENCOUNTER 2021-08-25 13:26 | Outpatient (CLI) | payer MEDICARE, SELFPAY ==
[2021-08-25 14:11] LABS: Anion Gap 15.2 (5-19); Blood Urea Nitrogen 44 mg/dL (8-23); Calcium 9.8 mg/dL (8.5-10.5); Carbon Dioxide 26 mmol/L (22-29); Chloride 98 mmol/L (98-107); Glucose 165 mg/dL (65-115); Osmolality Calculated 293 mOsm/kg (285-295); Potassium 5.2 mmol/L (3.5-5.1); Sodium 134 mmol/L (136-145)
[2021-08-25 18:07] LABS: Magnesium 2.3 mg/dL (1.7-2.3); NT Pro B Type Natriuretic Pept 1686 pg/mL (0-450)
== END 2021-08-25 13:27 | disposition home or self-care (01) ==
LOC: LAB 13:32
PROVIDERS: PCP Family Medicine; Visit Provider Internal Medicine Cardiovascular Disease
DX: I11.0 Hypertensive heart disease with heart failure (principal); I50.9 Heart failure, unspecified; N18.9 Chronic kidney disease, unspecified; I25.10 Atherosclerotic heart disease of native coronary artery without angina pectoris; Z98.61 Coronary angioplasty status; I73.9 Peripheral vascular disease, unspecified; Z95.0 Presence of cardiac pacemaker; I25.810 Atherosclerosis of coronary artery bypass graft(s) without angina pectoris; I35.0 Nonrheumatic aortic (valve) stenosis; R06.02 Shortness of breath
CPT/HCPCS: 80048; 83735; 83880; 99213

== ENCOUNTER → 2021-09-03 10:56 | Outpatient (BNVA) | payer MEDICARE, SELFPAY | PROVIDERS: PCP Family Medicine; Visit Provider Internal Medicine Cardiovascular Disease | DX: Z45.010 Encounter for checking and testing of cardiac pacemaker pulse generator [battery] (principal) | CPT/HCPCS: 93280 ==

== ENCOUNTER 2021-10-08 11:58 | Emergency (ER) | payer MEDICARE, SELFPAY ==
[2021-10-08 12:29] VITALS: BP 183/69; PULSE 69; RESP 16; TEMP 36.7; O2SAT 97; BMI 23.9
--- NOTE | 2021-10-08 12:34 | USR_ITS ---
PROCEDURE INFORMATION: Exam: US Duplex Left Lower Extremity Arteries Or Arterial Bypass Grafts Exam date and time: 10/08/2021 1:54 PM Age: 85 years old Clinical indication: Other: Cold lt foot; Prior surgery; Surgery date: 3-7 days post-operative; Surgery type: Tavr ao replacement; Patient HX: PT has had test before and today there is increased change; Additional info: L leg numbness TECHNIQUE: Imaging protocol: Left Real-time duplex scan of the arteries or arterial bypass grafts of the left lower extremity with 2-D verma scale, color Doppler flow and spectral waveform analysis. Images documented and saved. COMPARISON: Per ultrasound worksheet report comparisons made to ultrasound duplex left lower extremity arteries dated January 2021. FINDINGS: Left external iliac artery: Monophasic waveforms within the external iliac artery with elevated peak systolic velocity at the distal iliac artery of 181 cm/s. Left common femoral artery: No occlusion or significant stenosis. Monophasic waveform. Left superficial femoral artery: No occlusion or significant stenosis. Elevated peak systolic velocity in the proximal superficial femoral artery up to 239 cm/s. Monophasic waveform. Left popliteal artery: No occlusion or significant stenosis. Monophasic waveform. Left calf/foot arteries: Occluded left posterior tibial artery. Dorsalis pedis flow is also diminutive and monophasic. US/[place] [id number] IMPRESSION: Occluded left posterior tibial artery. Dorsalis pedis flow is also diminutive and monophasic. Monophasic waveforms also noted throughout the left lower extremity with patulous areas of increased peak systolic velocity. Per prior reports these findings are new from most recent comparison, but the comparison images were not available for review at the time of this report.
[2021-10-08 12:47] VITALS: BP 178/72; PULSE 73; RESP 16; TEMP 36.6; O2SAT 99
--- NOTE | 2021-10-08 13:51 | ED_ITS ---
HPI - General Adult General: Chief complaint: Extremity Injury, Lower Stated complaint: Left leg numb Time Seen by Provider: 10/08/21 12:33 History of Present Illness: 85F w/ hx of severe aortic stenosis s/p TAVR on 10/06/2021 in [facility] presenting to the emergency room for evaluation of left leg numbness and coldness. Patient tells me that since her procedure on 10/06/2021, she has experienced numbness in the left leg. Patient told her nurse while she was in the hospital and no further evaluation was performed. Since discharge from hospital, yesterday around 11 PM patient patient was doing well up until 2 PM when she noticed that her left leg began to hurt and the numbness has worsened. Patient also reports lightheadedness without any associated chest pain or shortness of breath and needed to be sit down. Patient reports persistence of leg numbness and decided to come to the emergency room because she cannot get a hold of her primary provider. At the present time, patient denies any cough, runny nose, sore throat, abdominal complaints, nausea/vomiting, complaint, diarrhea, melena or hematochezia. Onset: 2 days ago Duration:2 days Location:home Severity:moderate Associated symptoms: Deny chest pain, dyspnea, nausea, rash, palpitations or vomiting Review of Systems 2 Const: Denies: fever(s) or chills Eyes: Denies: change in vision ENMT: Denies: mouth pain Card: Denies: chest pain or palpitations Resp: Denies: dyspnea or non-productive cough GI: Denies: abdominal pain, nausea, vomiting or diarrhea : Denies: dysuria Musc: Reports: extremity pain (+L leg numbness and pain) Skin/Breast: Denies: rash or new lesions Neuro: Denies: weakness in extremities Psych: Reports: other (Normal mood) Sunil/Lymph: Denies: easy bruising PFSH ED PFSH: Medical History Aortic stenosis ASHD (arteriosclerotic heart disease) Carotid stenosis, bilateral CKD (chronic kidney disease) Diabetes Dyslipidemia Essential hypertension History of colon cancer Left bundle branch block Peripheral arterial disease Renal artery stenosis Second degree AV block, Mobitz type II Surgical History S/P CABG (coronary artery bypass graft) S/P cholecystectomy S/P hysterectomy S/P PTCA (percutaneous transluminal coronary angioplasty) Status cardiac pacemaker Status post tubal ligation Family History Grandfather Diabetes Daughter Hypertension Other CAD (coronary artery disease) Social History Smoking and tobacco status: never smoked Physical Exam Const: COMMON NORMALS: alert HENMT: COMMON NORMALS: atraumatic HEAD & SCALP: atraumatic MOUTH: moist mucous membranes not abnormal Eye: COMMON NORMALS: EOMs intact bilaterally and conjunctivae normal CONJUNCTIVA: Yes conjunctivae normal Neck/C-Spine: COMMON NORMALS: full ROM and supple Resp: COMMON NORMALS: normal respiratory effort and clear to auscultation bilaterally AUSCULTATION: clear to auscultation bilaterally Cardio: COMMON NORMALS: regular rate RATE: regular rate GI: COMMON NORMALS: Soft to palpation and non-tender PALPATION: Yes Soft to palpation Extremity: COMMON NORMALS: full ROM OTHER: + No Homans' sign, no lower extremity swelling on the left side, 2+ DP/PT pulses on the affected extremity, cap refill of 4 seconds bilaterally, left leg appears to be cold to palpation compared to the right lower extremity. Compartments nontense in the leg or thigh on the affected extremity. Neuro: SENSORIUM/ORIENTATION: Yes alert MOTOR EXAM: No Abnormal motor strength present and Other motor observations present (no focal motor deficits) Psych: COMMON NORMALS: speech normal SPEECH: Yes normal speech MOOD & AFFECT: Yes euthymic mood Course Vital Signs: Vital signs: Vital Signs Temperature 98 F 10/08/21 12:47 Pulse Rate 73 10/08/21 12:47 Respiratory Rate 16 10/08/21 12:47 Blood Pressure 178/72 10/08/21 12:47 Pulse Oximetry 99 10/08/21 12:47 [facility] - General Adult Medical Decision Making 85-year-old female with history of CKD, diabetes, aortic stenosis with recent TAVR on 10/06/2021 presenting to emergency room for evaluation of left leg numbness and pain. On exam, patient's left leg appears to be colder compared to the right leg. Patient has equally decreased cap refill in bilateral extremity. Ultrasound arterial showed no BACKGROUND INVESTIGATOR flow, monophasic DP flow on the left side. Patient is a prior ultrasound from 1 year ago which showed biphasic flow in the left lower extremity. Discussed with Dr. Piedra who recommended eye contact with Dr. Bentley. Discussed case with Dr. Randal Bentley. We do not currently have any beds in the hospital. Given the fact that this is a postoperative complication and patient has previous severe vascular disease on the affected extremity, we will transfer to patient's original hospital for reevaluation of post-op complication and formal evlauation by vascular surgery. S/p lovenox 1mg/kg Case was discussed with Medical Service group at [facility] vascular surgery [place] who agreed with the transfer for revascularization Disposition: Transfer to outside hospital Lab Data : 10/08/21 16:21 10/08/21 13:10 Radiology Impressions Duplex Scan Lower Extremity Artery 10/08/21 12:34 IMPRESSION: Occluded left posterior tibial artery. Dorsalis pedis flow is also diminutive and monophasic. Monophasic waveforms also noted throughout the left lower extremity with patulous areas of increased peak systolic velocity. Per prior reports these findings are new from most recent comparison, but the comparison images were not available for review at the time of this report. ADDENDUM: 10/08/21 1533 Findings were discussed with ANTOINE SILVA at 10/08/2021 3:31 PM CDT. Laboratory Results WBC 9.8 10^3/uL (4.0-10.0) 10/08/21 16:21 Corrected WBC Cancelled 10/08/21 15:10 RBC 4.27 10^6/uL (4.1-5.3) 10/08/21 16:21 Hgb 12.5 g/dL (11.5-15.3) 10/08/21 16:21 Hct 39.1 % (37.0-47.0) 10/08/21 16:21 MCV 91.6 fl (81-99) 10/08/21 16:21 MCH 29.3 pg (28.0-34.0) 10/08/21 16:21 MCHC 32.0 g/dL (30.0-36.0) 10/08/21 16:21 RDW 14.4 % (12.1-15.1) 10/08/21 16:21 Plt Count 180 10^3/cmm (130-400) 10/08/21 16:21 MPV 10.8 fL (7.4-10.4) H 10/08/21 16:21 Gran % Cancelled 10/08/21 15:10 Neut % (Auto) 65.0 % 10/08/21 16:21 Lymph % (Auto) 20.6 % 10/08/21 16:21 [place] % (Auto) 12.8 % 10/08/21 16:21 Eos % (Auto) 1.1 % 10/08/21 16:21 Baso % (Auto) 0.3 % 10/08/21 16:21 Neut # (Auto) 6.38 10^3/uL (1.8-7.7) 10/08/21 16:21 Lymph # (Auto) 2.0 10^3/uL (0.8-4.8) 10/08/21 16:21 [place]lins # (Auto) 1.3 10^3/uL (0.2-0.9) H 10/08/21 16:21 Eos # (Auto) 0.1 10^3/uL (0.0-0.8) 10/08/21 16:21 Baso # (Auto) 0.0 10^3/uL (0.0-0.1) 10/08/21 16:21 Absolute Gran (auto) Cancelled 10/08/21 15:10 Nucleated RBC % (auto) 0 % 10/08/21 16:21 Nucleated RBCs # 0.0 /100WBC 10/08/21 16:21 PT 16.20 SECONDS (12.1-14.9) H 10/08/21 16:21 INR 1.27 (0.8-1.2) H 10/08/21 16:21 APTT 31.3 SECONDS (23.9-36.7) 10/08/21 16:21 Sodium 136 mmol/L (136-145) 10/08/21 13:10 Potassium 4.4 mmol/L (3.5-5.1) 10/08/21 13:10 Chloride 101 mmol/L (98-107) 10/08/21 13:10 Carbon Dioxide 20 mmol/L (22-29) L 10/08/21 13:10 Anion Gap 19.4 (5-19) H 10/08/21 13:10 BUN 32 mg/dL (8-23) H 10/08/21 13:10 Creatinine 1.0 mg/dL (0.5-0.9) H 10/08/21 13:10 GFR Calculation Not Reportable 10/08/21 13:10 Glucose 169 mg/dL (65-115) H 10/08/21 13:10 Calculated Osmolality 293 mOsm/kg (285-295) 10/08/21 13:10 Calcium 8.8 mg/dL (8.5-10.5) 10/08/21 13:10 Troponin T Baseline 84 ng/L (0-10) H 10/08/21 15:10 Troponin T 120 Minute 92.94 ng/L (0-10) H 10/08/21 17:31 Delta Troponin T 8.94 ABS# (0-10) 10/08/21 17:31 Imaging Data Other Imaging: Radiologist's impression: [place] [address] Ultrasound Report Signed Patient: Sebastian Mike Unit #: [id number] : 1935 Age/Sex: 85 / F ADM Date: 10/08/21 Loc: ER Room/Bed: Attending Dr: Ordering Provider/Ordering MD: Antoine Silva MD Date of Service: 10/08/21 Procedure(s): [place] [address] Accession Number(s): [id number] Report Number: [id number] PROCEDURE INFORMATION: Exam: US Duplex Left Lower Extremity Arteries Or Arterial Bypass Grafts Exam date and time: 10/08/2021 1:54 PM Age: 85 years old Clinical indication: Other: Cold lt foot; Prior surgery; Surgery date: 3-7 days post-operative; Surgery type: Tavr ao replacement; Patient HX: PT has had test before and today there is increased change; Additional info: L leg numbness TECHNIQUE: Imaging protocol: Left Real-time duplex scan of the arteries or arterial bypass grafts of the left lower extremity with 2-D verma scale, color Doppler flow and spectral waveform analysis. Images documented and saved. COMPARISON: Per ultrasound worksheet report comparisons made to ultrasound duplex left lower extremity arteries dated January 2021. FINDINGS: Left external iliac artery: Monophasic waveforms within the external iliac artery with elevated peak systolic velocity at the distal iliac artery of 181 cm/s. Left common femoral artery: No occlusion or significant stenosis. Monophasic waveform. Left superficial femoral artery: No occlusion or significant stenosis. Elevated peak systolic velocity in the proximal superficial femoral artery up to 239 cm/s. Monophasic waveform. Left popliteal artery: No occlusion or significant stenosis. Monophasic waveform. Left calf/foot arteries: Occluded left posterior tibial artery. Dorsalis pedis flow is also diminutive and monophasic. US/[place] [id number] IMPRESSION: Occluded left posterior tibial artery. Dorsalis pedis flow is also diminutive and monophasic. Monophasic waveforms also noted throughout the left lower extremity with patulous areas of increased peak systolic velocity. ? Per prior reports these findings are new from most recent comparison, but the comparison images were not available for review at the time of this report. ? Dictated By: Alfonso Castaneda DO Signed By: Alfonso Castaneda DO Signed Date/Time: 10/08/21 1515 DD/ 1354 Discharge Plan Discharge Patient Disposition: Transfer to ED Clinical Impression: Leg numbness, Acute occlusion of artery Condition: Stable Prescriptions: No Action metoprolol tartrate 25 mg tablet 25 mg PO BID 0RF loperamide 2 mg capsule 2 mg PO Q4H PRN (Reason: Diarrhea) 0RF furosemide 40 mg tablet 40 mg PO DAILY 0RF glipizide 5 mg tablet 2.5 mg PO BID 0RF amlodipine 2.5 mg tablet 2.5 mg PO DAILY Qty: 90 3RF clopidogrel 75 mg Tablet 75 mg PO DAILY Qty: 90 2RF nitroglycerin 0.4 mg Tablet, Sublingual 0.4 mg sublingual Q5M PRN (Reason: Chest Pain) Qty: 30 6RF aspirin [Children's Aspirin] 81 mg Tablet,Chewable 81 mg PO DAILY Qty: 30 6RF ezetimibe 10 mg Tablet 10 mg PO DAILY Qty: 30 3RF latanoprost 0.005 % drops 1 drp ophthalmic (eye) QPM 0RF lisinopril 5 mg tablet 2.5 mg PO DAILY 0RF Referrals: Jenny Boggs MD [Primary Care Provider] - Coding Level of Care Code ED Cable Installer Repairer Helper for Chg Fwd Exam Comprehensive
--- NOTE | 2021-10-08 14:00 | USCV_ITS ---
Sebastian Mike Age: 85 Gender: F : 1935 Exam Date: 10/08/2021 14:23 Ordering Phys: Antoine Silva MD Technologist: Lyla Salguero Exam Location: [facility] [place] Indication: Recent access to Lt Art system for TAVR procedure HISTORY: Recent TAVR thru Lt Art system. Today Lt foot cold PROCEDURES: Venous duplex imaging was performed in only the left lower extremity. The following venous structures were evaluated: common femoral vein, profunda vein, proximal portion of the greater saphenous vein, superficial femoral vein, and the popliteal vein. In addition, the posterior tibial and peroneal trunk were evaluated. Serial compression, augmentation maneuvers, and spectral Doppler flow evaluation were performed. FINDINGS: Normal 2-D Doppler and augmentation and compressibility throughout the lower extremity venous structures. Additional imaging through the proximal calf veins also reveals no thrombus. Limited evaluation of the greater saphenous vein is patent with no thrombus.. CONCLUSIONS No evidence of left lower extremity DVT. Pj Mae MD (Electronically Signed) Final Date: 08 October 2021 16:09 S
--- NOTE | 2021-10-08 14:01 | ECG_ITS ---
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 Measurements Intervals [place] Rate: 69 P: 0 MT: 185 QRS: -78 QRSD: 166 T: 104 QT: 450 QTc: 484 Interpretive Statements ELECTRONIC VENTRICULAR PACEMAKER ABNORMAL RHYTHM ECG No previous ECG available for comparison Electronically Signed On 10-10-2021 23:41:29 CDT by Andrew Chang M.D. [id number]
[2021-10-08] MEDS: enoxaparin 80 mg/0.8 mL Syringe 70 MG SUBCUT (15:41)
[2021-10-08 15:46] LABS: Anion Gap 19.4 (5-19); Blood Urea Nitrogen 32 mg/dL (8-23); Calcium 8.8 mg/dL (8.5-10.5); Carbon Dioxide 20 mmol/L (22-29); Chloride 101 mmol/L (98-107); Glucose 169 mg/dL (65-115); Osmolality Calculated 293 mOsm/kg (285-295); Potassium 4.4 mmol/L (3.5-5.1); Sodium 136 mmol/L (136-145)
[2021-10-08 15:47] LABS: Troponin(5th) Baseline 84 ng/L (0-10)
[2021-10-08 16:27] LABS: Basophils % 0.3 %; Eosinophils # 0.1 10^3/uL (0.0-0.8); Eosinophils % 1.1 %; Hematocrit 39.1 % (37.0-47.0); Hemoglobin 12.5 g/dL (11.5-15.3); Lymphocytes % 20.6 %; Mean Corpuscular Hemoglobin 29.3 pg (28.0-34.0); Mean Corpuscular Volume 91.6 fl (81-99); Mean Platelet Volume 10.8 fL (7.4-10.4); Monocytes # 1.3 10^3/uL (0.2-0.9); Monocytes % 12.8 %; Neutrophils # 6.38 10^3/uL (1.8-7.7); Nucleated Red Blood Cells % 0 %; Platelet Count 180 10^3/cmm (130-400); Red Blood Count 4.27 10^6/uL (4.1-5.3); Red Cell Distribution Width 14.4 % (12.1-15.1); White Blood Count 9.8 10^3/uL (4.0-10.0)
[2021-10-08 16:41] LABS: INR 1.27 (0.8-1.2)
[2021-10-08 16:42] LABS: Partial Thromboplastin Time 31.3 SECONDS (23.9-36.7)
[2021-10-08 17:59] LABS: Troponin 5 2HR 92.94 ng/L (0-10)
[2021-10-08 18:05] LABS: Troponin 5 2HR Delta 8.94 ABS# (0-10)
[2021-10-08] MEDS: predniSONE 20 mg Tablet 60 MG PO (18:48)
[2021-10-08 18:55] VITALS: BP 191/79; PULSE 77; RESP 16; O2SAT 99
== END 2021-10-08 18:57 ==
PROVIDERS: Emergency Provider Emergency Medicine; PCP Family Medicine
DX: R20.0 Anesthesia of skin (principal); I77.1 Stricture of artery; E11.22 Type 2 diabetes mellitus with diabetic chronic kidney disease; N18.9 Chronic kidney disease, unspecified
CPT/HCPCS: 36415; 80048; 84484; 85025; 85610; 85730; 93005; 93926; 93971; 96372; 99285; J1650; J7512

== ENCOUNTER → 2021-12-17 10:57 | Outpatient (BNVA) | payer MEDICARE, SELFPAY | PROVIDERS: PCP Family Medicine; Visit Provider Internal Medicine Cardiovascular Disease | DX: Z45.010 Encounter for checking and testing of cardiac pacemaker pulse generator [battery] (principal) | CPT/HCPCS: 93280 ==

== ENCOUNTER → 2022-01-11 14:33 | Outpatient (BNVA) | payer MEDICARE, SELFPAY | PROVIDERS: PCP Family Medicine; Visit Provider Internal Medicine Cardiovascular Disease | DX: Z95.2 Presence of prosthetic heart valve (principal); I25.10 Atherosclerotic heart disease of native coronary artery without angina pectoris; I13.0 Hypertensive heart and chronic kidney disease with heart failure and stage 1 through stage 4 chronic kidney disease, or unspecified chronic kidney disease; N18.9 Chronic kidney disease, unspecified; I50.9 Heart failure, unspecified; Z95.1 Presence of aortocoronary bypass graft; E11.22 Type 2 diabetes mellitus with diabetic chronic kidney disease; Z79.84 Long term (current) use of oral hypoglycemic drugs; I73.9 Peripheral vascular disease, unspecified; Z95.0 Presence of cardiac pacemaker; I44.7 Left bundle-branch block, unspecified; E78.5 Hyperlipidemia, unspecified | CPT/HCPCS: 99214 ==

== ENCOUNTER 2022-03-03 14:04 | Outpatient (CLI) | payer MEDICARE, SELFPAY ==
--- NOTE | 2022-03-03 14:15 | USCV_ITS ---
Sebastian Mike Age: 86 Gender: F : 1935 Exam Date: 03/03/2022 14:16 Ordering Phys: Jami Gomez MD ([email or web address]) Technologist: JONN Exam Location: [facility] Indication: Stenosis Risk Factors: Previous Vascular Surgery: Right Brachial BP: / Left Brachial BP: / Right Left Velocity (cm/s) Spectral Plaque Velocity (cm/s) Spectral Plaque Syst/Diast Broadening Syst/Diast Broadening 71.70/ 9.90 Prox CCA 53.00 / 13.70 69.50/ 9.90 Mid CCA 58.10 / 12.80 48.20/ 7.00 Distal CCA 69.20 / 12.80 99.10/ 19.70 Prox ICA 71.50 / 14.00 96.60/ 17.90 Mid ICA 55.10 / 9.90 78.60/ 17.90 Distal ICA 81.60 / 18.70 137.80 ECA 154.80 1.38 ICA/CCA 1.18 Antegrade Vertebral Antegrade 61.50/ 11.10 cm/s 33.40/ 5.40 cm/s Tri Subclavian Tri 85.40 55.90 CONCLUSIONS Right ICA stenosis <50%. Moderate atheromatous plaque right carotid bulb/ICA. Left ICA stenosis <50%. Moderate atheromatous plaque left carotid bulb/ICA. Normal antegrade Doppler flow noted in the right vertebral artery. Normal antegrade Doppler flow noted in the left vertebral artery. Pj Mae MD (Electronically Signed) Final Date: 03 March 2022 17:10 S
== END 2022-03-03 14:05 | disposition home or self-care (01) ==
LOC: RAD 14:06
PROVIDERS: PCP Family Medicine; Visit Provider Internal Medicine Cardiovascular Disease
DX: I65.23 Occlusion and stenosis of bilateral carotid arteries (principal)
CPT/HCPCS: 93880

== ENCOUNTER 2022-03-08 15:36 | Inpatient (IN) | payer MEDICARE, SELFPAY ==
[2022-03-08] VITALS (8 sets, daily range): BP systolic 150–210; BP diastolic 67–79; PULSE 60; RESP 13–18; TEMP 36.5–36.6; O2SAT 96–100
--- NOTE | 2022-03-08 15:49 | CTR_ITS ---
PROCEDURE INFORMATION: Exam: CT Cervical Spine Without Contrast Exam date and time: 03/08/2022 7:17 PM Age: 86 years old Clinical indication: Injury or trauma; Fall; Blunt trauma; Additional info: Fall, headstrike TECHNIQUE: Imaging protocol: Computed tomography of the cervical spine without contrast. Radiation optimization: All CT scans at this facility use at least one of these dose optimization techniques: automated exposure control; mA and/or kV adjustment per patient size (includes targeted exams where dose is matched to clinical indication); or iterative reconstruction. COMPARISON: CT cervical spin wo con* [id number] 11/30/2016 3:10 PM RADIATION DOSE METRICS: Total DLP (mGy-cm): 159.17 FINDINGS: Bones/joints: No acute fracture. Normal alignment. No significant disc protrusion. No severe spinal canal stenosis. Lungs: Lung apices are normal. Soft tissues: Unremarkable. CT/CT cervical spin wo con* [id number] IMPRESSION: No acute findings.
--- NOTE | 2022-03-08 15:49 | CTR_ITS ---
PROCEDURE INFORMATION: Exam: CT Head Without Contrast Exam date and time: 03/08/2022 7:14 PM Age: 86 years old Clinical indication: Injury or trauma; Fall; Blunt trauma (contusions or hematomas); Additional info: Fall, headstrike TECHNIQUE: Imaging protocol: Computed tomography of the head without contrast. Radiation optimization: All CT scans at this facility use at least one of these dose optimization techniques: automated exposure control; mA and/or kV adjustment per patient size (includes targeted exams where dose is matched to clinical indication); or iterative reconstruction. COMPARISON: CT cervical spin wo con* [id number] 11/30/2016 3:10 PM RADIATION DOSE METRICS: Total DLP (mGy-cm): 1094.48 FINDINGS: Brain: No hemorrhage. No edema. Moderate diffuse cerebral atrophy and sequela of chronic small vessel ischemic disease. No mass effect. Cerebral ventricles: No ventriculomegaly. Paranasal sinuses: Opacified right maxillary sinus which appears chronic given osseous hypertrophy of the surrounding sinus hall. The rest of the paranasal sinuses are well pneumatized. Mastoid air cells: Visualized mastoid air cells are well aerated. Bones/joints: Unremarkable. No acute fracture. Soft tissues: Unremarkable. CT/CT head wo con* [id number] IMPRESSION: No acute intracranial abnormality.
--- NOTE | 2022-03-08 16:24 | XR_ITS ---
WS: [id number] EXAMINATION: [place] [id number] REASON FOR EXAM: CAN'T MOVE LEFT ARM COMPARISON: None available. ORDER DATE: 03/08/2022 4:24 PM FINDINGS: There is an acute surgical neck fracture with bone stick deformity with femoral shaft medially articu lating with the inferior glenoid and humeral head remaining in anatomic position lateral to the shaft . There is adjacent soft tissue swelling. XR/[place] [id number] IMPRESSION: Acute nondisplaced surgical neck fracture as noted above.
[2022-03-08] MEDS: morphine 4 mg/mL SDV 1 mL IVP (17:24)
[2022-03-08] MEDS: ondansetron 2 mg/ML SDV 2 mL 4 MG IVP ×2 (17:26→18:15)
--- NOTE | 2022-03-08 17:26 | W.ED.FALL ---
HPI - Fall General: Chief Complaint: Fall Stated Complaint: fall, left shoulder injury Time Seen by Provider: 03/08/22 17:26 [facility] ED PFSH: Medical History Aortic stenosis ASHD (arteriosclerotic heart disease) Carotid stenosis, bilateral CKD (chronic kidney disease) Diabetes Dyslipidemia Essential hypertension History of colon cancer Left bundle branch block Peripheral arterial disease Renal artery stenosis Second degree AV block, Mobitz type II Surgical History S/P CABG (coronary artery bypass graft) S/P cholecystectomy S/P hysterectomy S/P PTCA (percutaneous transluminal coronary angioplasty) Status cardiac pacemaker Status post tubal ligation Family History Grandfather Diabetes Daughter Hypertension Other CAD (coronary artery disease) Social History Smoking and tobacco status: never smoked Course Vital Signs: Vital signs: Vital Signs Temperature 97.8 F 03/08/22 15:41 Pulse Rate 60 03/08/22 15:41 Respiratory Rate 18 03/08/22 15:41 Blood Pressure 209/79 03/08/22 15:41 Pulse Oximetry 98 03/08/22 15:41 Oxygen Delivery Me thod 03/08/22 15:41 MDM - Fall Lab Data Radiology Impressions Humerus X-Ray 03/08/22 16:24 IMPRESSION: Acute nondisplaced surgical neck fracture as noted above. Discharge Plan Discharge Condition: Stable Prescriptions: No Action metoprolol tartrate 25 mg tablet 25 mg PO BID loperamide 2 mg capsule 2 mg PO Q4H PRN (Reason: Diarrhea) furosemide 40 mg tablet 20 mg PO DAILY PRN (Reason: edema) glipizide 5 mg tablet 2.5 mg PO BID clopidogrel 75 mg Tablet 75 mg PO DAILY Qty: 90 2RF nitroglycerin 0.4 mg Tablet, Sublingual 0.4 mg sublingual Q5M PRN (Reason: Chest Pain) Qty: 30 6RF aspirin [Children's Aspirin] 81 mg Tablet,Chewable 81 mg PO DAILY Qty: 30 6RF ezetimibe 10 mg Tablet 10 mg PO DAILY Qty: 30 3RF Referrals: Jenny Boggs MD [Primary Care Provider] - Coding Level of Care Code ED Foreign Broadcast Specialist for Joe Barron
[2022-03-08 17:54] LABS: Glucose Point of Care 205 mg/dL (70-110)
[2022-03-08] MEDS: HYDROmorphone 1 mg/mL INJ 1 mL 0.5 MG IVP ×2 (18:22→20:40)
--- NOTE | 2022-03-08 18:31 | CTR_ITS ---
PROCEDURE INFORMATION: Exam: CT Chest Without Contrast; Diagnostic Exam date and time: 03/08/2022 7:20 PM Age: 86 years old Clinical indication: Injury or trauma; Fall; Abdominal wall; Blunt trauma (contusions or hematomas); Additional info: Fall with significant pain TECHNIQUE: Imaging protocol: Diagnostic computed tomography of the chest without contrast. Radiation optimization: All CT scans at this facility use at least one of these dose optimization techniques: automated exposure control; mA and/or kV adjustment per patient size (includes targeted exams where dose is matched to clinical indication); or iterative reconstruction. COMPARISON: CT cervical spin wo con* [id number] 03/08/2022 7:17 PM RADIATION DOSE METRICS: Total DLP (mGy-cm): 968.89 FINDINGS: Lungs: No consolidation. No masses. Pleural spaces: No pneumothorax. No pleural effusion. Heart: Coronary artery calcifications noted. Sequela of TAVR. No cardiomegaly. No pericardial effusion. Lymph nodes: Calcified mediastinal and hilar lymph nodes consistent with prior granulomatous disease. No enlarged lymph nodes. Vasculature: No aortic aneurysm. Bones/joints: Fracture through the proximal left humerus. Otherwise no additional fractures. Sternotomy wires noted. Soft tissues: Pacer device noted in the left chest wall. PROCEDURE INFORMATION: Exam: CT Abdomen And Pelvis Without Contrast Exam date and time: 03/08/2022 7:20 PM Age: 86 years old Clinical indication: Injury or trauma; Fall; Abdominal wall; Blunt trauma (contusions or hematomas); Additional info: Fall with significant pain TECHNIQUE: Imaging protocol: Computed tomography of the abdomen and pelvis without contrast. Radiation optimization: All CT scans at this facility use at least one of these dose optimization techniques: automated exposure control; mA and/or kV adjustment per patient size (includes targeted exams where dose is matched to clinical indication); or iterative reconstruction. COMPARISON: No relevant prior studies available. RADIATION DOSE METRICS: Total DLP (mGy-cm): 968.89 FINDINGS: Liver: Normal. No mass. Gallbladder and bile ducts: Cholecystectomy. Mild prominence of the common bile duct likely reflecting reservoir effect from prior cholecystectomy. Pancreas: Normal. No ductal dilation. Spleen: Normal. No splenomegaly. Adrenal glands: Normal. No mass. Kidneys and ureters: Normal. No hydronephrosis. Stomach and bowel: Right hemicolectomy changes. No obstruction. No mucosal thickening. Appendix: No evidence of appendicitis. Intraperitoneal space: No free air. No significant fluid collection. Vasculature: Mild ectasia of the infrarenal abdominal aorta up to 2.6 cm. Lymph nodes: No enlarged lymph nodes. Urinary bladder: Unremarkable as visualized. Reproductive: Unremarkable as visualized. Bones/joints: No acute fracture. Soft tissues: Unremarkable. CT/[place] [id number] IMPRESSION: 1. Fracture through the proximal left humerus. 2. No acute traumatic intrathoracic findings. IMPRESSION: No acute traumatic intra-abdominal findings.
--- NOTE | 2022-03-08 18:52 | W.ED.FALL ---
HPI - Fall General: Chief Complaint: Fall Stated Complaint: fall, left shoulder injury Time Seen by Provider: 03/08/22 17:26 History of Present Illness: Patient is in today after fall. She reports that she was in socks and stepped down a step on slick floor and fell onto her left side. She does report hitting her head but not hard. She states that mostly is her arm. She denies any loss of consciousness. She denies pain except for in her arm. She reports some nausea. She thinks this is from the pain. Associated symptoms-after fall: Reports neck pain (Patient states chronic posterior neck pain); Denies abdominal pain or chest pain Review of Systems Const: Denies: fever(s) or chills Card: Denies: chest pain, palpitations or irregular heart rhythm Resp: Denies: dyspnea, productive cough or non-productive cough GI: Reports: nausea and vomiting; Denies: abdominal pain : Denies: flank pain, difficulty voiding or dysuria Musc: Reports: neck pain (Patient states chronic posterior neck pain) and extremity pain (Left upper arm and shoulder pain) PFSH ED PFSH: Medical History Aortic stenosis ASHD (arteriosclerotic heart disease) Carotid stenosis, bilateral CKD (chronic kidney disease) Diabetes Dyslipidemia Essential hypertension History of colon cancer Left bundle branch block Peripheral arterial disease Renal artery stenosis Second degree AV block, Mobitz type II Surgical History S/P CABG (coronary artery bypass graft) S/P cholecystectomy S/P hysterectomy S/P PTCA (percutaneous transluminal coronary angioplasty) Status cardiac pacemaker Status post tubal ligation Family History Grandfather Diabetes Daughter Hypertension Other CAD (coronary artery disease) Social History Smoking and tobacco status: never smoked Physical Exam Const: OTHER: Patient is in obvious pain. She is holding a rag over her head when I walk into the room. She reports that she is nauseated from the pain. She grimaces and screams anytime she moves. She states that it is just in her arm. She does report some headache but not bad. Neck/C-Spine: COMMON NORMALS: no JVD OTHER: Patient reports chronic posterior neck pain. There is no obvious deformity or step-off appreciated with palpation to the cervical spine. Palpation of the cervical spine and paraspinal musculature does not seem to elicit pain response. Patient is minimally cooperative with exam due to her pain reported in her arm. I do observe patient looking side to side but I did not assess full range of motion of her neck due to her cooperation. Resp: COMMON NORMALS: normal respiratory effort, No use of accessory muscles and clear to auscultation bilaterally AUSCULTATION: clear to auscultation bilaterally Cardio: COMMON NORMALS: no JVD, regular rate and regular rhythm RATE: regular rate RHYTHM: regular rhythm Course Vital Signs: Vital signs: Vital Signs Temperature 97.8 F 03/08/22 15:41 Pulse Rate 60 03/08/22 18:59 Respiratory Rate 13 03/08/22 20:40 Blood Pressure 150/67 03/08/22 18:59 Pulse Oximetry 97 03/08/22 18:59 Oxygen Delivery Me thod 03/08/22 15:41 MDM - Fall Medical Decision Making Patient pain has been difficult to control since arrival. She reports significant nausea related to her pain. She reports extreme pain with any kind of movement at all. I have consulted with Dr. Patton for pain control. Morphine and Dilaudid have both been given which are helping the pain somewhat. Nausea and some vomiting continues. Given the patient's extreme pain report along with nausea and vomiting CT scan chest abdomen and pelvis is also added. CT of head and cervical spine as well as chest abdomen and pelvis were all negative for any acute findings. I spoke with orthopedic surgeon on-call, Dr. Puentes, and he advised that this would be a nonsurgical issue however he was happy to consult if hospitalist wanted to admit the patient for pain control and needed him to consult. I called and spoke with Dr. Hendrickson, hospitalist, who agrees to admit patient for pain control. Lab Data Radiology Impressions Cervical Spine CT 03/08/22 15:49 IMPRESSION: No acute findings. Head CT 03/08/22 15:49 IMPRESSION: No acute intracranial abnormality. Humerus X-Ray 03/08/22 16:24 IMPRESSION: Acute nondisplaced surgical neck fracture as noted above. Chest/Abdomen/Pelvis CT 03/08/22 18:31 IMPRESSION: 1. Fracture through the proximal left humerus. 2. No acute traumatic intrathoracic findings. IMPRESSION: No acute traumatic intra-abdominal findings. Laboratory Results POC Glucose 205 mg/dL (70-110) H 03/08/22 17:49 Discharge Plan Discharge Condition: Stable Prescriptions: No Action metoprolol tartrate 25 mg tablet 25 mg PO BID loperamide 2 mg capsule 2 mg PO Q4H PRN (Reason: Diarrhea) furosemide 40 mg tablet 20 mg PO DAILY PRN (Reason: edema) glipizide 5 mg tablet 2.5 mg PO BID clopidogrel 75 mg Tablet 75 mg PO DAILY Qty: 90 2RF nitroglycerin 0.4 mg Tablet, Sublingual 0.4 mg sublingual Q5M PRN (Reason: Chest Pain) Qty: 30 6RF aspirin [Children's Aspirin] 81 mg Tablet,Chewable 81 mg PO DAILY Qty: 30 6RF ezetimibe 10 mg Tablet 10 mg PO DAILY Qty: 30 3RF Referrals: Jenny Boggs MD [Primary Care Provider] - Coding Level of Care Code ED Enterprise Architect for Chg Fwd Exam Expanded Problem Focused
--- NOTE | 2022-03-08 21:14 | P.HP_ITS ---
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 Son stating that she was wearing socks which were very slippery on a wooden floor, she missed her step walking towards the living area and fell on the left side and fractured her arm. Patient is stating that she has been falling for quite some time and she is sick and tired of it and she wants to stop taking dual antiplatelet therapy, she has not noticed any syncopal event, fever, diarrhea. She is endorsing nausea, intermittent chest discomfort, she would notice left-sided chest discomfort sometimes at rest, few days ago she woke up because of chest discomfort which she would describe as stabbing and achy, she is able to pinpoint at the area as well. In the ER she has been diagnosed with left humeral fracture, orthopedics recommended nonsurgical intervention, patient is experiencing nausea and vomiting because of pain, she is not endorsing active pain at this point however I have requested troponin and EKG, in the ER only glucose was checked which was 205, patient is stating that she has lost 40 pounds with intermittent fasting she is trying to control her blood sugar through weight loss She was hypertensive in the ER which improved with pain management Currently doing well on room air No active chest pain Review of Systems Const: Reports: chills, body aches and fatigue Eyes: Denies: change in vision ENMT: Denies: throat pain Card: Reports: chest pain and dyspnea on exertion Resp: Denies: dyspnea GI: Reports: nausea and vomiting : Denies: flank pain Musc: Reports: back pain; Denies: neck pain Skin/Breast: Denies: rash Neuro: Denies: headache(s) Psych: Reports: anxiety Endo: Denies: polyuria Sunil/Lymph: Denies: easy bruising All/Imm: Denies: urticaria Medications/Allergies Home Medications Medication Instructions Recorded Confirmed Last Taken Type loperamide 2 mg capsule 2 mg PO Q4H PRN Diarrhea 06/17/19 10/08/21 Unknown History metoprolol tartrate 25 mg tablet 25 mg PO BID 06/17/19 10/08/21 10/08/21 History glipizide 5 mg tablet 2.5 mg PO BID 07/06/21 10/08/21 10/08/21 History aspirin 81 mg chewable tablet 81 mg PO DAILY #30 tabs 08/12/21 10/08/21 10/08/21 Rx (Children's Aspirin) clopidogrel 75 mg tablet 75 mg PO DAILY #90 tabs 08/12/21 10/08/21 10/08/21 Rx ezetimibe 10 mg tablet 10 mg PO DAILY #30 tabs 08/12/21 10/08/21 10/08/21 Rx nitroglycerin 0.4 mg sublingual 0.4 mg sublingual Q5M PRN Chest 08/12/21 10/08/21 Unknown Rx tablet Pain #30 tabs furosemide 40 mg tablet 20 mg PO DAILY PRN edema 01/11/22 Unknown History Allergies Allergy/AdvReac Type Severity Reaction Status Date / Time Iodinated Contrast Media Allergy Unknown Unknown Verified 08/25/21 12:11 iodine Allergy Unknown Unknown Verified 08/25/21 12:11 Qhasknq-YEY-TlT Reductase Allergy Unknown Unknown Verified 08/25/21 12:11 Inhibitor [Luhyqqi-Udq-Jdz Reductase Inhibitor] PFSH Acute PFSH: Medical History Aortic stenosis ASHD (arteriosclerotic heart disease) Carotid stenosis, bilateral CKD (chronic kidney disease) Diabetes Dyslipidemia Essential hypertension History of colon cancer Left bundle branch block Peripheral arterial disease Renal artery stenosis Second degree AV block, Mobitz type II Surgical History S/P CABG (coronary artery bypass graft) S/P cholecystectomy S/P hysterectomy S/P PTCA (percutaneous transluminal coronary angioplasty) Status cardiac pacemaker Status post tubal ligation Family History Grandfather Diabetes Daughter Hypertension Other CAD (coronary artery disease) Social History Smoking and tobacco status: never smoked Vitals/I&O/Wt Last Vital Signs Temp 97.8 F 03/08/22 15:41 Pulse 60 03/08/22 18:59 Resp 13 03/08/22 20:40 BP 150/67 03/08/22 18:59 Pulse Ox 97 03/08/22 18:59 O2 Del Method 03/08/22 15:41 Weight last 48 hrs Weight 63.503 kg Physical Exam Narrative: Patient is sitting in a chair Left arm in a sling No active chest pain Her chest pain is reproducible on left side near her left arm fracture Clinically looks euvolemic No signs of edema S1, S2 Abdomen soft Doing well on room air Pleasant and cooperative Son at the bedside A&P Assessment and plan (1) Fracture, humerus, anatomical neck: Qualifiers: Encounter type: initial encounter Fracture type: closed Laterality: left Qualified Code(s): S42.292A - Other displaced fracture of upper end of left humerus, initial encounter for closed fracture (2) Vomiting: (3) Pain: (4) Pacemaker: (5) Peripheral arterial disease: (6) Essential hypertension: (7) Renal artery stenosis: (8) Diabetes: (9) CKD (chronic kidney disease): (10) Carotid stenosis, bilateral: Plan Left humeral fracture Nonsurgical management Patient is in excruciating pain, she is also vomiting, she cannot go home and take p.o. opioids Pain management with morphine Patient has not tolerated solid Zofran and Reglan to be alternated Recurrent falls in last few days Pacemaker interrogation requested No active chest pain Patient is endorsing reproducible chest pain on left side I have requested serial troponin and EKG Significant past medical history of TAVR, pacemaker placement, left bundle branch block, follows up with Dr. Gomez Type 2 diabetes I will keep her on sliding scale check A1c level patient is endorsing losing 40 pounds in the last few months, she is doing intermittent fasting at home Hypertensive urgency, blood pressure improved with pain management Full code Cardiac diet DVT prophylaxis Heparin Attestations 2 Medical Necessity Statement*: Patient might be able to go home tomorrow anticipated discharge within 48 hours need pain management for left humeral fracture Time Spent in Patient Care: 40 Coding Level of Care Code Acute Regulator Operator for [facility] Fwd Diagnoses Fracture, humerus, anatomical neck S42.292A Encounter type: initial encounter Fracture type: closed Laterality: left Vomiting R11.10 Pain R52 Pacemaker Z95.0 Peripheral arterial disease I73.9 Essential hypertension I10 Renal artery stenosis I70.1 Diabetes E11.9 CKD (chronic kidney disease) N18.9 Carotid stenosis, bilateral I65.23
[2022-03-08] MEDS: metoclopramide 5 mg/mL SDV 2 mL IVP (21:20)
--- NOTE | 2022-03-08 21:23 | ECG_ITS ---
[facility] Test Date: 2022-03-08 Pat Name: Sebastian Mike Department: Room: 277 Gender: Female Supervisor International Reservations: : 1935 Requested By: Teresa Grimaldo Order Number: [id number] Eliza MD: Randal Bentley M.D. Measurements Intervals [place] Rate: 62 P: 142 AR: 183 QRS: -69 QRSD: 160 T: 124 QT: 497 QTc: 507 Interpretive Statements ELECTRONIC ATRIAL PACEMAKER ELECTRONIC VENTRICULAR PACEMAKER ABNORMAL RHYTHM ECG Compared to ECG 10/08/2021 18:38:04 No significant changes Electronically Signed On 03-09-2022 16:13:10 SECURITY ANALYST by Randal Bentley M.D. [id number]
[2022-03-08 23:01] LABS: Troponin(5th) Baseline 14 ng/L (0-10)
--- NOTE | 2022-03-08 23:03 | PC.NURSE ---
using 3 in orthoglass held in place by kavin wrap patients left upper extremity placed in a coaptation splint with no difficulties. patient tolerated procedure well. motor movement intact to fingers with <3 cap refill noted upon finishing exam.
[2022-03-08 23:04] LABS: Estmated Average Glucose 157; Hemoglobin A1C 7.1 % (4.0-6.0)
--- NOTE | 2022-03-08 23:14 | PC.NURSE ---
Splint to left shoulder placed in ED.
[2022-03-08 23:17] LABS: Vitamin B12 650 pg/mL (232-1245)
--- NOTE | 2022-03-08 23:19 | PC.NURSE ---
Patient unable to tell me her home medications and states that no one will be able to bring her list. Pharmacy will need to be called in AM to update med rec.
--- NOTE | 2022-03-08 23:23 | ECG_ITS ---
[facility] Test Date: 2022-03-09 Pat Name: Sebastian Mike Department: Room: 277 Gender: Female Button Breaker: : 1935 Requested By: Teresa Grimaldo Order Number: [id number] Eliza MD: Randal Bentley M.D. Measurements Intervals [place] Rate: 68 P: 51 GA: 202 QRS: -75 QRSD: 170 T: 116 QT: 476 QTc: 510 Interpretive Statements ELECTRONIC VENTRICULAR PACEMAKER ABNORMAL RHYTHM ECG Compared to ECG 03/08/2022 22:14:00 Atrial-paced complex(es) or rhythm no longer present Electronically Signed On 03-09-2022 16:17:56 LAND MOBILE RADIO TECHNICIAN by Randal Bentley M.D. [id number]
[2022-03-08] MEDS: heparin 5,000 unit/mL INJ 1 mL 5000 UNIT SUBCUT (23:44)
[2022-03-08] MEDS: oxyCODONE 5 mg IR Tab/Cap 10 MG PO (23:44)
[2022-03-08] MEDS: hyDRALAzine 20 mg/mL INJ 1 mL 10 MG IVP (23:44)
[2022-03-09] VITALS (17 sets, daily range): BP systolic 110–185; BP diastolic 57–85; PULSE 63–87; RESP 14–20; TEMP 36.5–36.7; O2SAT 94–98
--- NOTE | 2022-03-09 00:04 | PC.NURSE ---
Blood pressure 210/75 upon arrival to the floor. Dr. Hendrickson notified. IV Hydralazine x 1 ordered. Will reassess blood pressure.
[2022-03-09] MEDS: morphine 4 mg/mL SDV 1 mL IVP ×3 (01:19→10:31)
--- NOTE | 2022-03-09 01:25 | PC.NURSE ---
Addendum entered by Yvette Del Angel RN 03/09/22 06:37: Patient refused Flexeril. Dr. Hendrickson notified. Patient states the Morphine works best for her pain. Addendum entered by Yvette Del Angel RN 03/09/22 01:38: Flexeril x1 ordered. Original Note: Patient states she will start to dose off and get a spasm in her arm and makes the pain much worse. Patient states those pain pills didn't help much. Dr. Hendrickson notified.
[2022-03-09 02:02] LABS: Basophils % 0.2 %; Hematocrit 41.9 % (37.0-47.0); Hemoglobin 13.6 g/dL (11.5-15.3); Lymphocytes # 0.8 10^3/uL (0.8-4.8); Lymphocytes % 5.7 %; Mean Corpuscular HGB Conc 32.5 g/dL (30.0-36.0); Mean Corpuscular Hemoglobin 28.1 pg (28.0-34.0); Mean Corpuscular Volume 86.6 fl (81-99); Mean Platelet Volume 10.9 fL (7.4-10.4); Monocytes # 0.7 10^3/uL (0.2-0.9); Monocytes % 5.4 %; Neutrophils # 11.53 10^3/uL (1.8-7.7); Neutrophils % 88.1 %; Nucleated Red Blood Cells % 0 %; Platelet Count 236 10^3/cmm (130-400); Red Blood Count 4.84 10^6/uL (4.1-5.3); Red Cell Distribution Width 14.6 % (12.1-15.1); White Blood Count 13.1 10^3/uL (4.0-10.0)
[2022-03-09 02:24] LABS: Anion Gap 15.8 (5-19); Blood Urea Nitrogen 23 mg/dL (8-23); Calcium 9.4 mg/dL (8.5-10.5); Carbon Dioxide 26 mmol/L (22-29); Chloride 98 mmol/L (98-107); Glucose 274 mg/dL (65-115); Magnesium 2.1 mg/dL (1.7-2.3); Osmolality Calculated 293 mOsm/kg (285-295); Potassium 4.8 mmol/L (3.5-5.1); Sodium 135 mmol/L (136-145)
--- NOTE | 2022-03-09 04:06 | ECG_ITS ---
[facility] Test Date: 2022-03-09 Pat Name: Sebastian Mike Department: Room: 277 Gender: Female Automatic Packer Operator: : 1935 Requested By: Teresa Grimaldo Order Number: [id number] Eliza MD: Randal Bentley M.D. Measurements Intervals [place] Rate: 80 P: 66 NC: 199 QRS: -75 QRSD: 169 T: 114 QT: 431 QTc: 498 Interpretive Statements ELECTRONIC VENTRICULAR PACEMAKER ABNORMAL RHYTHM ECG Compared to ECG 03/09/2022 00:32:43 No significant changes Electronically Signed On 03-09-2022 16:18:04 ROLL TENDER by Randal Bentley M.D. [id number]
[2022-03-09 05:40] LABS: Troponin 5 6HR 21.09 ng/L (0-10); Troponin 5 6HR Delta 7.09 ng/L (0-12)
[2022-03-09 07:49] LABS: Glucose Point of Care 159 mg/dL (70-110)
[2022-03-09] MEDS: clopidogrel 75 mg Tablet PO (08:26)
[2022-03-09] MEDS: aspirin 81 mg Chew Tablet PO (08:26)
[2022-03-09] MEDS: metoprolol tartrate 25 mg Tablet PO ×2 (08:26→17:36)
[2022-03-09] MEDS: oxyCODONE 5 mg IR Tab/Cap 10 MG PO ×4 (08:30→20:30)
[2022-03-09] MEDS: heparin 5,000 unit/mL INJ 1 mL 5000 UNIT SUBCUT ×2 (10:31→20:30)
[2022-03-09 11:45] LABS: Glucose Point of Care 167 mg/dL (70-110)
--- NOTE | 2022-03-09 15:26 | PM.PN ---
Subjective Subjective: Patient was seen and examined this morning, extremely sleepy, likely due to pain medicines, on IV morphine as well as oxycodone. Medications: Medication Review Details: Generic Name Dose Route Start Last Admin Trade Name Esdras PRN Reason Stop Dose Admin Aspirin 81 mg 03/09/22 09:00 03/09/22 08:26 Aspirin 81 Mg Ch ew Tablet PO 81 mg DAILY MARGARITA Administration Clopidogrel Bisulf ate 75 mg 03/09/22 09:00 03/09/22 08:26 Clopidogrel 75 M g Tablet PO 75 mg DAILY MARGARITA Administration Heparin Sodium (Po rcine) 5,000 unit 03/08/22 22:45 03/09/22 10:31 Heparin 5,000 Un it/Ml Inj 1 Ml SUBCUT 5,000 unit Q12H MARGARITA Administration Hydralazine HCl 25 mg 03/09/22 09:00 03/09/22 14:29 Hydralazine 25 M g Tablet PO Not Given TID [facility] Insulin Human Lisp ro 0 unit 03/09/22 08:00 03/09/22 13:05 Insulin Lispro 1 00 Unit/1 Ml SUBCUT Not Given TIDWM [facility] Protocol Isosorbide Dinitra te 10 mg 03/09/22 09:00 03/09/22 08:35 Isosorbide Dinit rate 20 Mg Tablet PO Not Given BID [facility] Lisinopril 20 mg 03/09/22 09:00 03/09/22 08:36 Lisinopril 20 Mg Tablet PO Not Given DAILY [facility] Metoprolol Tartrat e 25 mg 03/09/22 09:00 03/09/22 08:26 Metoprolol Tartr ate 25 Mg Tablet PO 25 mg BID [facility] Administration Morphine Sulfate 4 mg 03/08/22 22:33 03/09/22 10:31 Morphine 4 Mg/Ml Sdv 1 Ml IVP 4 mg Q4H PRN Administration SEVERE PAIN Oxycodone HCl 10 mg 03/08/22 22:33 03/09/22 13:25 Oxycodone 5 Mg I r Tab/Cap PO 10 mg Q3H PRN Administration arm pain Senna/Docusate Sod ium 1 tab 03/09/22 09:00 03/09/22 08:36 Sennosides-Docus ate Tablet PO Not Given DAILY [facility] Vitals/I&O/Wt Last Vital Signs Temp 97.9 F 03/09/22 11:26 Pulse 72 03/09/22 11:26 Resp 14 03/09/22 13:25 BP 156/85 03/09/22 11:26 Pulse Ox 94 03/09/22 11:26 O2 Del Method 03/09/22 11:26 03/09/22 03/09/22 03/09/22 06:59 14:59 22:59 Intake Total 100 / 100 360 / 360 Output Total 200 / 200 Balance 100 / 100 160 / 160 Weight last 48 hrs Weight 63.503 kg Physical Exam Resp: COMMON NORMALS: normal respiratory effort, No retractions, No use of accessory muscles and clear to auscultation bilaterally EFFORT & INSPECTION: Yes symmetric chest movement AUSCULTATION: clear to auscultation bilaterally Cardio: COMMON NORMALS: regular rate, regular rhythm, S1 normal heart sound present, S2 normal heart sound present, No gallops present (Cardio), No murmurs present (Cardio), No rub (Cardio) and Peripheral pulses 2+ throughout RATE: regular rate RHYTHM: regular rhythm HEART SOUNDS: S1 normal heart sound present and S2 normal heart sound present PERIPHERAL PULSES: Peripheral pulses 2+ throughout GI: COMMON NORMALS: Normal to inspection, nondistended, normoactive bowel sounds present, Soft to palpation, non-tender, No hepatosplenomegaly present and no masses AUSCULTATION: Yes normoactive bowel sounds PALPATION: Yes Soft to palpation and Yes No hepatosplenomegaly present RECTAL EXAM: deferred Extremity: COMMON NORMALS: no clubbing, cyanosis or edema and no pedal edema Data 03/09/22 01:26 03/09/22 01:26 A&P Assessment and plan (1) Fracture, humerus, anatomical neck: Qualifiers: Encounter type: initial encounter Fracture type: closed Laterality: left Qualified Code(s): S42.292A - Other displaced fracture of upper end of left humerus, initial encounter for closed fracture (2) Vomiting: (3) Pain: (4) Pacemaker: (5) Peripheral arterial disease: (6) Essential hypertension: (7) Renal artery stenosis: (8) Diabetes: (9) CKD (chronic kidney disease): (10) Carotid stenosis, bilateral: Plan 86-year-old female with past medical history of aortic stenosis status post TAVR, coronary artery disease, diabetes hypertension dyslipidemia, status post pacemaker, status post CABG, was brought in from home after experiencing what appears to be a mechanical fall currently she is being managed for. Assessment: #Left humerus fracture History of aortic stenosis status post TAVR History of coronary artery disease History of CABG Diabetes Hypertension Nausea vomiting Plan: CT head without contrast no acute intracranial pathology Patient has recent carotid Doppler neck: has not shown any flow-limiting stenosis CT chest abdomen pelvis: Fracture through the proximal left humerus, CT C-spine: No acute findings EKG: No acute ST-T wave changes Orthostatic vital signs check negative Troponin trend: Unremarkable Orthopedic was consulted by the ER: Currently we will continue with conservative nonsurgical management. Pain control Reglan Zofran for nausea vomiting Pacemaker interrogation Continue sliding scale insulin, monitor fingerstick course, diabetic diet, HbA1c 7.1 Continue aspirin Plavix statin, beta-cinthya CODE STATUS: Full code DVT prophylaxis on heparin Attestations Medical Necessity Statement*: Patient is in hospital for management of left humerus fracture pain control. Time Spent in Patient Care: Greater than 35 minutes (>than 50% of time spent in counselling and/or direct pt care on unit). 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
[2022-03-09 16:29] LABS: Glucose Point of Care 185 mg/dL (70-110)
--- NOTE | 2022-03-09 16:40 | PC.NURSE ---
THIS NURSE COMPLETED PACEMAKER INTERROGATION
--- NOTE | 2022-03-09 18:27 | PC.NURSE ---
PATIENT HAS REFUSED BLOOD PRESSURE MEDICATIONS AND INSULIN. ONLY AGREEING TO TAKE METOPROLOL. DR. CLARK NOTIFIED. PAIN MORE CONTROLLED TODAY. PATIENT RESTED WELL THIS AFTERNOON.
[2022-03-09] MEDS: hyDRALAzine 25 mg Tablet PO (20:30)
[2022-03-09 21:00] LABS: Glucose Point of Care 173 mg/dL (70-110)
[2022-03-10] VITALS (12 sets, daily range): BP systolic 148–186; BP diastolic 64–78; PULSE 65–98; RESP 13–18; TEMP 36.7–37.1; O2SAT 96–99
[2022-03-10] MEDS: oxyCODONE 5 mg IR Tab/Cap 10 MG PO ×6 (00:27→23:50)
[2022-03-10] MEDS: morphine 4 mg/mL SDV 1 mL IVP (00:27)
--- NOTE | 2022-03-10 00:35 | PC.NURSE ---
IV to right arm red. Patient c/o pain to it. IV removed. Patient is refusing to have a new IV started at this time.
[2022-03-10 04:51] LABS: Basophils # 0.1 10^3/uL (0.0-0.1); Basophils % 0.5 %; Eosinophils # 0.1 10^3/uL (0.0-0.8); Eosinophils % 1.4 %; Hematocrit 37.4 % (37.0-47.0); Hemoglobin 11.8 g/dL (11.5-15.3); Lymphocytes # 1.8 10^3/uL (0.8-4.8); Lymphocytes % 18.5 %; Mean Corpuscular HGB Conc 31.6 g/dL (30.0-36.0); Mean Corpuscular Hemoglobin 27.9 pg (28.0-34.0); Mean Corpuscular Volume 88.4 fl (81-99); Mean Platelet Volume 10.4 fL (7.4-10.4); Monocytes # 1.2 10^3/uL (0.2-0.9); Neutrophils # 6.59 10^3/uL (1.8-7.7); Neutrophils % 67.1 %; Nucleated Red Blood Cells % 0 %; Platelet Count 197 10^3/cmm (130-400); Red Blood Count 4.23 10^6/uL (4.1-5.3); Red Cell Distribution Width 14.9 % (12.1-15.1); White Blood Count 9.8 10^3/uL (4.0-10.0)
[2022-03-10 05:10] LABS: Blood Urea Nitrogen 30 mg/dL (8-23); Calcium 9.1 mg/dL (8.5-10.5); Carbon Dioxide 28 mmol/L (22-29); Chloride 100 mmol/L (98-107); Glucose 154 mg/dL (65-115); Osmolality Calculated 289 mOsm/kg (285-295); Sodium 135 mmol/L (136-145)
[2022-03-10 06:30] LABS: Glucose Point of Care 138 mg/dL (70-110)
[2022-03-10] MEDS: aspirin 81 mg Chew Tablet PO (08:05)
[2022-03-10] MEDS: sennosides-docusate Tablet 1 TAB PO (08:05)
[2022-03-10] MEDS: metoprolol tartrate 25 mg Tablet PO ×2 (08:06→19:52)
[2022-03-10] MEDS: clopidogrel 75 mg Tablet PO (08:06)
--- NOTE | 2022-03-10 11:01 | PC.CHAP ---
Pastoral Care Encounter/Spiritual Assessment Type of Contact [] Declined hardware test engineer visit [] Patient/Family/Request visit [] Outpatient visit [] Follow-up visit [] Physician referral [] Code/Alert [x] Routine visit [] Staff referral [] Actively dying [] Patient sleeping [] Family support [] [] Out of room [] Palliative care [] [x] Receiving care in room [] Pre-surgical visit [] Trauma [x] Long length of stay [] ICU visit [] Other: Relational/Emotional Strength [] Patient feels connected with others/family/visitors/staff [xx] Distress [] Loneliness/isolation [] Abandonment Spirituality of Patient [x] Person of [place] [] Attends Advent of their [place] [x] Believes in Prayer [] Reads Bible or Lutheran materials [] There are Spiritual issues to be addressed Sequins Winder Interventions [x] Prayer [x] Active listening [x] Non-anxious presence [x] Spiritual/emotional support [] Crisis/trauma care [x] Spiritual counseling [] Bereavement support [] Provided bereavement packet [] Provided Bible/devotional materials [] Provided toy/stuffed animal, coloring book to patient or family member [] Provided Communion [] Anointing/[place] [] Salvation [x] Completed spiritual assessment [] Other: Impact on Illness or Injury [] Angry [] Fearful [x] Anxious [] Often cries [] Exhaustion [] Unable to work [] Unable to attend hinduism [] Unable to walk/stand [] Unable to read [] Unable to drive [] Unable to eat/drink [] Unable to sleep [] Unable to be with family [] Patient intubated [] Other: Summary sholder factor unable to do any surgery in pain under doctors care not sure about rehab at this time or when she can go home Time spent with patient 10 mins
[2022-03-10 11:11] LABS: Glucose Point of Care 182 mg/dL (70-110)
--- NOTE | 2022-03-10 12:13 | P.PN_ITS ---
Subjective Subjective: Patient was seen and examined this morning, continue to complain of significant pain in the left upper extremity even with slightest movement. Medications: Medication Review Details: Generic Name Dose Route Start Last Admin Trade Name Esdras PRN Reason Stop Dose Admin Aspirin 81 mg 03/09/22 09:00 03/10/22 08:05 Aspirin 81 Mg Ch ew Tablet PO 81 mg DAILY MARGARITA Administration Clopidogrel Bisulf ate 75 mg 03/09/22 09:00 03/10/22 08:06 Clopidogrel 75 M g Tablet PO 75 mg DAILY MARGARITA Administration Heparin Sodium (Po rcine) 5,000 unit 03/08/22 22:45 03/09/22 20:30 Heparin 5,000 Un it/Ml Inj 1 Ml SUBCUT 5,000 unit Q12H [facility] Administration Hydralazine HCl 25 mg 03/09/22 09:00 03/10/22 08:18 Hydralazine 25 M g Tablet PO Not Given TID [facility] Insulin Human Lisp ro 0 unit 03/09/22 08:00 03/10/22 11:31 Insulin Lispro 1 00 Unit/1 Ml SUBCUT Not Given TIDWM [facility] Protocol Isosorbide Dinitra te 10 mg 03/09/22 09:00 03/10/22 08:18 Isosorbide Dinit rate 20 Mg Tablet PO Not Given BID [facility] Lisinopril 20 mg 03/09/22 09:00 03/10/22 08:18 Lisinopril 20 Mg Tablet PO Not Given DAILY [facility] Metoprolol Tartrat e 25 mg 03/09/22 09:00 03/10/22 08:06 Metoprolol Tartr ate 25 Mg Tablet PO 25 mg BID [facility] Administration Morphine Sulfate 4 mg 03/08/22 22:33 03/10/22 00:27 Morphine 4 Mg/Ml Sdv 1 Ml IVP 4 mg Q4H PRN Administration SEVERE PAIN Oxycodone HCl 10 mg 03/08/22 22:33 03/10/22 08:06 Oxycodone 5 Mg I r Tab/Cap PO 10 mg Q3H PRN Administration arm pain Senna/Docusate Sod ium 1 tab 03/09/22 09:00 03/10/22 08:05 Sennosides-Docus ate Tablet PO 1 tab DAILY MARGARITA Administration Vitals/I&O/Wt Last Vital Signs Temp 98.1 F 03/10/22 11:49 Pulse 65 03/10/22 11:49 Resp 18 03/10/22 11:49 BP 154/78 03/10/22 11:49 Pulse Ox 98 03/10/22 11:49 O2 Del Method 03/10/22 11:49 03/09/22 03/10/22 03/10/22 22:59 06:59 14:59 Intake Total 220 / 580 0 / 580 240 / 240 Output Total 1000 / 1200 0 / 1200 625 / 625 Balance -780 / -620 0 / -620 -385 / -385 Weight last 48 hrs Weight 63.503 kg Physical Exam Resp: COMMON NORMALS: normal respiratory effort, No retractions, No use of accessory muscles and clear to auscultation bilaterally EFFORT & INSPECTION: Yes symmetric chest movement AUSCULTATION: clear to auscultation bilaterally Cardio: COMMON NORMALS: regular rate, regular rhythm, S1 normal heart sound present, S2 normal heart sound present, No gallops present (Cardio), No murmurs present (Cardio), No rub (Cardio) and Peripheral pulses 2+ throughout RATE: regular rate RHYTHM: regular rhythm HEART SOUNDS: S1 normal heart sound present and S2 normal heart sound present PERIPHERAL PULSES: Peripheral pulses 2+ throughout GI: COMMON NORMALS: Normal to inspection, nondistended, normoactive bowel sounds present, Soft to palpation, non-tender, No hepatosplenomegaly present and no masses AUSCULTATION: Yes normoactive bowel sounds PALPATION: Yes Soft to palpation and Yes No hepatosplenomegaly present RECTAL EXAM: deferred Extremity: COMMON NORMALS: no clubbing, cyanosis or edema and no pedal edema Data 03/10/22 04:42 03/10/22 04:42 A&P Assessment and plan (1) Fracture, humerus, anatomical neck: Qualifiers: Encounter type: initial encounter Fracture type: closed Laterality: left Qualified Code(s): S42.292A - Other displaced fracture of upper end of left humerus, initial encounter for closed fracture (2) Vomiting: (3) Pain: (4) Pacemaker: (5) Peripheral arterial disease: (6) Essential hypertension: (7) Renal artery stenosis: (8) Diabetes: (9) CKD (chronic kidney disease): (10) Carotid stenosis, bilateral: Plan 86-year-old female with past medical history of aortic stenosis status post TAVR, coronary artery disease, diabetes hypertension dyslipidemia, status post pacemaker, status post CABG, was brought in from home after experiencing what appears to be a mechanical fall currently she is being managed for. Assessment: #Left humerus fracture History of aortic stenosis status post TAVR History of coronary artery disease History of CABG Diabetes Hypertension Nausea vomiting Plan: CT head without contrast no acute intracranial pathology Patient has recent carotid Doppler neck: has not shown any flow-limiting stenosis CT chest abdomen pelvis: Fracture through the proximal left humerus, CT C-spine: No acute findings EKG: No acute ST-T wave changes Orthostatic vital signs check negative Troponin trend: Unremarkable Orthopedic was consulted by the ER: Currently we will continue with conservative nonsurgical management. Pain control Reglan Zofran for nausea vomiting Pacemaker interrogation Continue sliding scale insulin, monitor fingerstick course, diabetic diet, HbA1c 7.1 Continue aspirin Plavix statin, beta-cinthya CODE STATUS: Full code DVT prophylaxis on heparin Attestations Medical Necessity Statement*: In hospital for pain control. 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
--- NOTE | 2022-03-10 12:14 | PC.OT ---
OT TREATMENT ATTEMPTED THIS A.M. PATIENT REPORTS TOO MUCH PAIN. GROOMING TASKS OFFERED AND PATIENT STATES, I JUST DON'T WANT TO MOVE OFFERED GROOMING TASKS IN BED AND PATIENT STATES, I CAN DO IT JUST NOT RIGHT NOW; I DON'T WANT ANYONE HELPING ME. I REMINDED HER OF THE PURPOSE OF OT AND THAT SHE WOULD DO MUCH SHE COULD HERSELF AND THERAPY WOULD ONLY HELP IF NEEDED. SHE STATES THAT SHE DOES NOT WANT TO PERFORM ANY THERAPY TODAY AT ALL.
[2022-03-10] MEDS: heparin 5,000 unit/mL INJ 1 mL 5000 UNIT SUBCUT ×2 (12:16→21:47)
[2022-03-10 17:14] LABS: Glucose Point of Care 182 mg/dL (70-110)
[2022-03-10] MEDS: hyDRALAzine 25 mg Tablet PO (19:52)
[2022-03-10 21:20] LABS: Glucose Point of Care 198 mg/dL (70-110)
[2022-03-11] VITALS (8 sets, daily range): BP systolic 164–172; BP diastolic 55–70; PULSE 63–90; RESP 16–18; TEMP 36.6–36.8; O2SAT 96–97
[2022-03-11 06:34] LABS: Glucose Point of Care 168 mg/dL (70-110)
[2022-03-11] MEDS: metoprolol tartrate 25 mg Tablet PO (08:29)
[2022-03-11] MEDS: aspirin 81 mg Chew Tablet PO (08:29)
[2022-03-11] MEDS: clopidogrel 75 mg Tablet PO (08:29)
[2022-03-11] MEDS: heparin 5,000 unit/mL INJ 1 mL 5000 UNIT SUBCUT (10:21)
[2022-03-11] MEDS: oxyCODONE 5 mg IR Tab/Cap 10 MG PO ×2 (10:21→13:45)
--- NOTE | 2022-03-11 10:57 | P.DS_ITS ---
Discharge Providers Date of Admission: 03/09/22 18:55 Date of Discharge: March 11, 2022 Attending Provider at Admission: Delma Hendrickson MD Attending Provider at Discharge: Jesus Valderrama MD Primary Care Provider: Jenny Boggs, Diagnoses at Discharge Discharge Diagnosis (1) Fracture, humerus, anatomical neck: Status: Acute Qualifiers: Encounter type: initial encounter Fracture type: closed Laterality: left Qualified Code(s): S42.292A - Other displaced fracture of upper end of left humerus, initial encounter for closed fracture (2) Vomiting: Status: Acute (3) Pain: Status: Acute (4) Pacemaker: Status: Acute (5) Peripheral arterial disease: Status: Acute (6) Essential hypertension: Status: Acute (7) Renal artery stenosis: Status: Acute (8) Diabetes: Status: Acute (9) CKD (chronic kidney disease): Status: Acute (10) Carotid stenosis, bilateral: Status: Acute Reason for Visit Reason for Visit: fall, left shoulder injury Hospital Course Hospital Course 86-year-old female with past medical history of aortic stenosis status post TAVR, coronary artery disease, diabetes hypertension dyslipidemia, status post pacemaker, status post CABG, was brought in from home after experiencing what appears to be a mechanical fall, she was admitted for the management of Left humerus fracture:CT head without contrast no acute intracranial pathology,Patient has recent carotid Doppler neck:? has not shown any flow- limiting stenosisCT chest abdomen pelvis:?Fracture through the proximal left humerus,CT C-spine: No acute findings EKG: No acute ST-T wave changes,Orthostatic vital signs check negative,Troponin trend: Unremarkable,Pacemaker interrogation, no events.Orthopedic was consulted by the ER: Plan was conservative nonsurgical management.Left upper extremity was placed in sling, pain control bowel regimen nausea vomiting medications, were administered while she was in hospital.Once the pain was better controlled with oral pain medication,She was discharged home on Percocet, Tylenol, and Flexeril. She will follow orthopedic as outpatient, in the event of any significant acute change in her left upper extremity, she has been asked to come to the ER.Patient chose to go home, and stated that she has sufficient help at home, she was discharged in stable condition to home. Physical Exam Resp: COMMON NORMALS: clear to auscultation bilaterally EFFORT & INSPECTION: Yes symmetric chest movement AUSCULTATION: clear to auscultation bilaterally Cardio: COMMON NORMALS: regular rate, regular rhythm, S1 normal heart sound present, S2 normal heart sound present, No gallops present (Cardio), No murmurs present (Cardio), No rub (Cardio) and Peripheral pulses 2+ throughout RATE: regular rate RHYTHM: regular rhythm HEART SOUNDS: S1 normal heart sound present and S2 normal heart sound present PERIPHERAL PULSES: Peripheral pulses 2+ throughout GI: COMMON NORMALS: Normal to inspection, nondistended, normoactive bowel sounds present, Soft to palpation, non-tender, No hepatosplenomegaly present and no masses AUSCULTATION: Yes normoactive bowel sounds PALPATION: Yes Soft to palpation and Yes No hepatosplenomegaly present RECTAL EXAM: deferred Extremity: COMMON NORMALS: no clubbing, cyanosis or edema and no pedal edema Discharge Data Studies Completed and Pending Completed Studies During Hospitalization Category Date Time Status CT cervical spin wo con* [id number] Stat Cat Scan 03/08/22 15:[address] chest abdomen pelvis [[place] [id number] Cat Scan 03/08/22 18:31 Completed ] Stat CT head wo con* [id number] Stat Cat Scan 03/08/22 15:49 [place] [id number] Stat Exams 03/08/22 16:24 Completed Radiology Impressions Cervical Spine CT 03/08/22 15:49 IMPRESSION: No acute findings. Head CT 03/08/22 15:49 IMPRESSION: No acute intracranial abnormality. Humerus X-Ray 03/08/22 16:24 IMPRESSION: Acute nondisplaced surgical neck fracture as noted above. Chest/Abdomen/Pelvis CT 03/08/22 18:31 IMPRESSION: 1. Fracture through the proximal left humerus. 2. No acute traumatic intrathoracic findings. IMPRESSION: No acute traumatic intra-abdominal findings. Laboratory Results WBC 9.8 10^3/uL (4.0-10.0) 03/10/22 04:42 RBC 4.23 10^6/uL (4.1-5.3) 03/10/22 04:42 Hgb 11.8 g/dL (11.5-15.3) 03/10/22 04:42 Hct 37.4 % (37.0-47.0) 03/10/22 04:42 MCV 88.4 fl (81-99) 03/10/22 04:42 MCH 27.9 pg (28.0-34.0) L 03/10/22 04:42 MCHC 31.6 g/dL (30.0-36.0) 03/10/22 04:42 RDW 14.9 % (12.1-15.1) 03/10/22 04:42 Plt Count 197 10^3/cmm (130-400) 03/10/22 04:42 MPV 10.4 fL (7.4-10.4) 03/10/22 04:42 Neut % (Auto) 67.1 % 03/10/22 04:42 Lymph % (Auto) 18.5 % 03/10/22 04:42 [place] % (Auto) 12.0 % 03/10/22 04:42 Eos % (Auto) 1.4 % 03/10/22 04:42 Baso % (Auto) 0.5 % 03/10/22 04:42 Neut # (Auto) 6.59 10^3/uL (1.8-7.7) 03/10/22 04:42 Lymph # (Auto) 1.8 10^3/uL (0.8-4.8) 03/10/22 04:42 [place] # (Auto) 1.2 10^3/uL (0.2-0.9) H 03/10/22 04:42 Eos # (Auto) 0.1 10^3/uL (0.0-0.8) 03/10/22 04:42 Baso # (Auto) 0.1 10^3/uL (0.0-0.1) 03/10/22 04:42 Nucleated RBC % (auto) 0 % 03/10/22 04:42 Nucleated RBCs # 0.0 /100WBC 03/10/22 04:42 Sodium 135 mmol/L (136-145) L 03/10/22 04:42 Potassium 5.0 mmol/L (3.5-5.1) 03/10/22 04:42 Chloride 100 mmol/L (98-107) 03/10/22 04:42 Carbon Dioxide 28 mmol/L (22-29) 03/10/22 04:42 Anion Gap 12.0 (5-19) 03/10/22 04:42 BUN 30 mg/dL (8-23) H 03/10/22 04:42 Creatinine 1.0 mg/dL (0.5-0.9) H 03/10/22 04:42 GFR Calculation Not Reportable 03/10/22 04:42 Glucose 154 mg/dL (65-115) H 03/10/22 04:42 POC Glucose 168 mg/dL (70-110) H 03/11/22 06:28 Estimat Average Glucose 157 03/08/22 21:53 Hemoglobin A1c 7.1 % (4.0-6.0) H 03/08/22 21:53 Calculated Osmolality 289 mOsm/kg (285-295) 03/10/22 04:42 Calcium 9.1 mg/dL (8.5-10.5) 03/10/22 04:42 Magnesium 2.1 mg/dL (1.7-2.3) 03/09/22 01:26 Troponin T Baseline 14 ng/L (0-10) H 03/08/22 21:53 Troponin T 120 Minute 16.80 ng/L (0-10) H 03/09/22 01:26 Delta Troponin T 2.80 ABS# (0-10) 03/09/22 01:26 Troponin T Hi Sens 6Hr 21.09 ng/L (0-10) H 03/09/22 04:45 Troponin T Hi Sens 6Hr Delta 7.09 ng/L (0-12) 03/09/22 04:45 Vitamin B12 650 pg/mL (232-1245) 03/08/22 21:53 Vitals Last Vital Signs Temp 98.3 F 03/11/22 03:50 Pulse 72 03/11/22 08:00 Resp 18 03/11/22 10:21 BP 164/66 03/11/22 08:00 Pulse Ox 96 03/11/22 08:00 O2 Del Method 03/11/22 07:35 Discharge Plan Discharge Patient Disposition: Home Condition: Stable Prescriptions: New Percocet 5-325 mg tablet 1 tab PO Q4H PRN (Reason: pain) 15 Days Qty: 30 0RF cyclobenzaprine 5 mg tablet 5 mg PO TID PRN (Reason: muscle spasm) 7 Days Qty: 14 0RF acetaminophen 500 mg Tablet 500 mg PO Q4H PRN (Reason: fever) 14 Days Qty: 30 0RF ondansetron HCl 4 mg tablet 4 mg PO Q8H PRN (Reason: nausea and vomiting) 5 Days Qty: 20 0RF Continued metoprolol tartrate 25 mg tablet 25 mg PO BID loperamide 2 mg capsule 2 mg PO Q4H PRN (Reason: Diarrhea) furosemide 40 mg tablet 20 mg PO DAILY PRN (Reason: edema) glipizide 5 mg tablet 2.5 mg PO BID clopidogrel 75 mg Tablet 75 mg PO DAILY Qty: 90 2RF nitroglycerin 0.4 mg Tablet, Sublingual 0.4 mg sublingual Q5M PRN (Reason: Chest Pain) Qty: 30 6RF aspirin [Children's Aspirin] 81 mg Tablet,Chewable 81 mg PO DAILY Qty: 30 6RF ezetimibe 10 mg Tablet 10 mg PO DAILY Qty: 30 3RF latanoprost 0.005 % drops 1 drp ophthalmic (eye) QPM prednisolone acetate 1 % drops,suspension 1 drp ophthalmic (eye) QID brimonidine 0.2 % drops 1 drp ophthalmic (eye) BID Discharge Orders: Discharge Order (Routine); Ordered 03/11/22 Ordered By: Jesus Valderrama Other Ambulatory Orders: DME: Cane/ Crutches (Order) Location: None Selected Ordered By: Delma Hendrickson Referrals: [facility] [place] [Outside] Jenny Boggs MD [Primary Care Provider] - 03/16/22 10:00 am Chandler Puentes MD [Physician] - 03/24/22 3:00 pm (Appointment will be with BRITNEY Miller.) Patient Instructions: Acetaminophen (By mouth), Oxycodone/Acetaminophen (By mouth), Cyclobenzaprine (By mouth) (Flexeril, Amrix, Fexmid, FusePaq Tabradol), Arm Fracture in Adults (DC), Opioid Safety Discharge Attestations Time Spent in Discharge Care*: less than 30 min Quality Metrics Clinical Quality Measures [ No reported AMI, CVA or VTE this stay] Coding Level of Care Code Acute Chg FW DC note Exam Expanded Problem Focused Diagnoses Fracture, humerus, anatomical neck S42.292A Encounter type: initial encounter Fracture type: closed Laterality: left Vomiting R11.10 Pain R52 Pacemaker Z95.0 Peripheral arterial disease I73.9 Essential hypertension I10 Renal artery stenosis I70.1 Diabetes E11.9 CKD (chronic kidney disease) N18.9 Carotid stenosis, bilateral I65.23
[2022-03-11 12:01] LABS: Glucose Point of Care 149 mg/dL (70-110)
--- NOTE | 2022-03-11 14:31 | PC.NURSE ---
Discharge Note Patient discharged to home via private vehicle accompanied by son. Discharge instructions reviewed with patient and/or inside outside sales representative. Mobile pharmacy medications and/or prescriptions provided. Belongings/home medications returned.
== END 2022-03-11 14:31 | disposition home or self-care (01) | DRG 563 ==
LOC: ER 21:31 → MEDSURG 21:46
PROVIDERS: Admitting Provider Internal Medicine; Emergency Provider Nurse Practitioner Family; PCP Family Medicine; Visit Provider Internal Medicine
DX: S42.215A Unspecified nondisplaced fracture of surgical neck of left humerus, initial encounter for closed fracture (principal); W01.0XXA Fall on same level from slipping, tripping and stumbling without subsequent striking against object, initial encounter; Z95.0 Presence of cardiac pacemaker; E11.51 Type 2 diabetes mellitus with diabetic peripheral angiopathy without gangrene; E11.22 Type 2 diabetes mellitus with diabetic chronic kidney disease; I12.9 Hypertensive chronic kidney disease with stage 1 through stage 4 chronic kidney disease, or unspecified chronic kidney disease; N18.9 Chronic kidney disease, unspecified; I70.1 Atherosclerosis of renal artery; I65.23 Occlusion and stenosis of bilateral carotid arteries; Z95.2 Presence of prosthetic heart valve; E78.5 Hyperlipidemia, unspecified; I25.10 Atherosclerotic heart disease of native coronary artery without angina pectoris; Z95.5 Presence of coronary angioplasty implant and graft; Z79.84 Long term (current) use of oral hypoglycemic drugs; Z79.02 Long term (current) use of antithrombotics/antiplatelets; Z79.82 Long term (current) use of aspirin; I44.7 Left bundle-branch block, unspecified
CPT/HCPCS: 36415; 36416; 70450; 71250; 72125; 73060; 74176; 80048; 82607; 82962; 83036; 83735; 84484; 85025; 93005; 96372; 96374; 96375; 96376; 97116; 97161; 97166; 97530; 97535; 99285; G0378; J0360; J1170; J1644; J2270; J2405; J2765

== ENCOUNTER → 2022-03-30 10:38 | Outpatient (BNVA) | payer MEDICARE, SELFPAY | PROVIDERS: PCP Family Medicine; Visit Provider Nurse Practitioner Family | DX: S42.292A Other displaced fracture of upper end of left humerus, initial encounter for closed fracture (principal); X58.XXXA Exposure to other specified factors, initial encounter | CPT/HCPCS: 73060; 99214 ==

== ENCOUNTER 2022-03-30 11:56 | Outpatient (CLI) | payer MEDICARE, SELFPAY | END 2022-03-30 11:57 | disposition home or self-care (01) | LOC: SPT 11:56 | PROVIDERS: PCP Family Medicine; Visit Provider Nurse Practitioner Family | DX: Z46.89 Encounter for fitting and adjustment of other specified devices (principal); S42.292D Other displaced fracture of upper end of left humerus, subsequent encounter for fracture with routine healing; X58.XXXD Exposure to other specified factors, subsequent encounter | CPT/HCPCS: 97760; L3670 ==

== ENCOUNTER → 2022-04-08 10:58 | Outpatient (BNVA) | payer MEDICARE, SELFPAY | PROVIDERS: PCP Family Medicine; Visit Provider Internal Medicine Cardiovascular Disease | DX: Z45.010 Encounter for checking and testing of cardiac pacemaker pulse generator [battery] (principal) | CPT/HCPCS: 93280 ==

== ENCOUNTER → 2022-05-10 13:48 | Outpatient (BNVA) | payer MEDICARE, SELFPAY | PROVIDERS: PCP Family Medicine; Visit Provider Nurse Practitioner Family | DX: S42.292A Other displaced fracture of upper end of left humerus, initial encounter for closed fracture (principal); X58.XXXA Exposure to other specified factors, initial encounter | CPT/HCPCS: 73060; 99213 ==

== ENCOUNTER → 2022-07-28 15:37 | Outpatient (BNVA) | payer MEDICARE, SELFPAY | PROVIDERS: PCP Family Medicine; Visit Provider Internal Medicine | DX: I35.0 Nonrheumatic aortic (valve) stenosis (principal); I25.10 Atherosclerotic heart disease of native coronary artery without angina pectoris; I73.9 Peripheral vascular disease, unspecified; I44.7 Left bundle-branch block, unspecified; E78.5 Hyperlipidemia, unspecified; Z95.0 Presence of cardiac pacemaker; Z79.82 Long term (current) use of aspirin; I13.0 Hypertensive heart and chronic kidney disease with heart failure and stage 1 through stage 4 chronic kidney disease, or unspecified chronic kidney disease; E11.22 Type 2 diabetes mellitus with diabetic chronic kidney disease; N18.9 Chronic kidney disease, unspecified; Z79.84 Long term (current) use of oral hypoglycemic drugs; I50.9 Heart failure, unspecified | CPT/HCPCS: 99214 ==

== ENCOUNTER → 2023-01-26 15:13 | Outpatient (BNVA) | payer MEDICARE, SELFPAY | PROVIDERS: PCP Family Medicine; Visit Provider Internal Medicine | DX: I35.0 Nonrheumatic aortic (valve) stenosis (principal); I25.10 Atherosclerotic heart disease of native coronary artery without angina pectoris; I11.0 Hypertensive heart disease with heart failure; I50.9 Heart failure, unspecified; I73.9 Peripheral vascular disease, unspecified; I44.7 Left bundle-branch block, unspecified; E78.5 Hyperlipidemia, unspecified; Z95.0 Presence of cardiac pacemaker | CPT/HCPCS: 99214 ==

== ENCOUNTER → 2023-07-31 14:02 | Outpatient (BNVA) | payer MEDICARE, SELFPAY | PROVIDERS: PCP Family Medicine; Visit Provider Internal Medicine | DX: I25.10 Atherosclerotic heart disease of native coronary artery without angina pectoris (principal); I13.0 Hypertensive heart and chronic kidney disease with heart failure and stage 1 through stage 4 chronic kidney disease, or unspecified chronic kidney disease; N18.9 Chronic kidney disease, unspecified; I50.9 Heart failure, unspecified; I73.9 Peripheral vascular disease, unspecified; I44.7 Left bundle-branch block, unspecified; E78.5 Hyperlipidemia, unspecified; Z95.0 Presence of cardiac pacemaker; Z95.2 Presence of prosthetic heart valve; Z87.891 Personal history of nicotine dependence | CPT/HCPCS: 99214 ==

== ENCOUNTER 2023-08-08 12:19 | Outpatient (CLI) | payer MEDICARE, SELFPAY ==
--- NOTE | 2023-08-08 13:00 | USCV_ITS ---
Sebastian Mike Age: 87 Gender: F : 1935 Exam Date: 08/08/2023 12:52 Ordering Phys: Andrew Chang M.D ([email or web address]) Technologist: Exam Location: [facility] [place] Indication: AV PROS MURMUR BP: 140 / 70 HR: 86 Rhythm: Sinus Technical Quality: Adequate MEASUREMENTS (Male / Female) Normal Values 2D ECHO LV Diastolic Diameter PLAX 4.4 cm 4.2 - 5.9 / 3.9 - 5.3 cm IVS Diastolic Thickness 1.2 cm 0.6 - 1.0 / 0.6 - 0.9 cm IVS Systolic Thickness 1.8 cm LVPW Diastolic Thickness 1.4 cm 0.6 - 1.0 / 0.6 - 0.9 cm LVPW Systolic Thickness 1.5 cm LVOT Diameter 1.9 cm LV Ejection Fraction 2D Teich 55.1 % LV Ejection Fraction MOD 2C 52.8 % LV Ejection Fraction 2C AL 53.3 % LA Diameter 4.0 cm RA Systolic Volume 4C AL 47.2 ml RA Systolic Volume 4C MOD 47.2 ml LA Sys Volume AL 95.5 cm cubed LA Sys Volume Index AL 55.4 cm cubed/m squared IVC Diameter 1.7 cm M-MODE LA Ao Ratio MM 1.5 AV Cusp Separation MM 2.1 cm DOPPLER AV Peak Velocity 169.0 cm/s LVOT Peak Velocity 77.0 cm/s AV Area Cont Eq vti 1.9 cm squared AV Area Cont Eq pk 1.3 cm squared MV Peak Velocity 414.5 cm/s MV Area PHT 5.4 cm squared Mitral E to A Ratio 1.0 TV Peak Velocity 239.0 cm/s TR Peak Velocity 350.0 cm/s TR Peak Gradient 49.0 mmHg TV Peak E Velocity 110.0 cm/s Right Atrial Pressure 3.0 mmHg Pulmonary Artery Systolic Pressu 52.0 mmHg PV Peak Velocity 75.0 cm/s FINDINGS Left Ventricle Left ventricle is normal in size. LV systolic function is mildly reduced with EF of 40 to 45%. Mild global hypokinesis. Right Ventricle Normal in size and function. Right Atrium Normal in size. Pacemaker lead noted. Left Atrium Dilated Mitral Valve Mild mitral annular calcification. Moderate mitral regurgitation. Aortic Valve Bioprosthetic aortic valve is seen. No significant stenosis or regurgitation. DVI is 0.66 and is normal Tricuspid Valve Mild tricuspid regurgitation. RVSP is 50-55mmHg. This is consistent with moderate pulmonary hypertension. Pulmonic Valve Trace pulmonic regurgitation Pericardium Trace pericardial effusion Aorta Normal in size IVC Appears to be normal CONCLUSIONS LV systolic function is mildly reduced with EF of 40-45% Left atrial dilation Moderate mitral regurgitation Bioprosthetic aortic valve is noted. Normal DVI Mild tricuspid regurgitation Trace pulmonic regurgitation Trace pericardial effusion Compared to prior echocardiogram from 2021, patient's LV systolic function has decreased, mitral regurgitation has progressed and is moderate now , has moderate pulmonary hypertension now and has a normally functioning bioprosthetic aortic valve. Andrew Chang MD (Electronically Signed) Final Date: 14 Aug 2023 08:25 S
== END 2023-08-08 12:20 | disposition home or self-care (01) ==
PROVIDERS: PCP Family Medicine; Visit Provider Internal Medicine
DX: R07.9 Chest pain, unspecified (principal); R06.02 Shortness of breath; I34.0 Nonrheumatic mitral (valve) insufficiency; I07.1 Rheumatic tricuspid insufficiency
CPT/HCPCS: 93306

== ENCOUNTER → 2024-03-22 13:41 | Outpatient (BNVA) | payer MEDICARE, SELFPAY | PROVIDERS: PCP Family Medicine; Visit Provider Internal Medicine Cardiovascular Disease | DX: Z79.01 Long term (current) use of anticoagulants (principal); R06.02 Shortness of breath; I48.91 Unspecified atrial fibrillation; R07.9 Chest pain, unspecified; I25.118 Atherosclerotic heart disease of native coronary artery with other forms of angina pectoris; R94.39 Abnormal result of other cardiovascular function study; Z95.0 Presence of cardiac pacemaker; I10 Essential (primary) hypertension | CPT/HCPCS: 36415; 80048; 83880; 85025; 85610; 86850; 86900; 93005; 99215 ==

== ENCOUNTER 2024-03-25 07:40 | Outpatient (CLI) | payer MEDICARE, SELFPAY ==
[2024-03-25] VITALS (12 sets, daily range): BP systolic 97–213; BP diastolic 50–87; PULSE 65–91; RESP 16–20; TEMP 36.4–37.2; O2SAT 91–99; BMI 24.6
--- NOTE | 2024-03-25 08:22 | W.PM.OPSUD ---
Surgery/Procedure H&P Update DATE OF PROCEDURE: March 25, 2024 DATE H&P PERFORMED: 03/22/24 H&P UPDATE INFORMATION: I have reviewed H&P completed within last 30 days, I have examined patient prior to procedure and No changes to prior documentation PREOP DIAGNOSIS: pacemaker DEISY PRIMARY INDICATION FOR PROCEDURE: pacemaker DEISY/pacemaker dependency/complete heart block PLANNED PROCEDURE: Operation Date: 03/25/24 08:30 Proposed Procedures p Pacemaker Generator Change - REM/REP DUAL PPM GEN CHANGE(Not Applicable) - Napoleon Campbell MD PATIENT REASSESSED PRIOR TO SEDATION, WITH NO CHANGE NOTED: Yes PHYSICAL EXAM: alert, oriented x 3, clear to auscultation bilaterally and regular rate & rhythm AIRWAY EVAL/ANESTHESIA PLAN: normal airway, see other exam findings, ASA III, Monitored Anesthesia, Local Anesthesia, Risks, benefits & alternatives of sedation and/or procedure discussed and Patient agrees to continue as planned
--- NOTE | 2024-03-25 09:43 | P.OP_ITS ---
Operative Report Date of procedure: March 25, 2024 Surgeon: Napoleon Campbell MD Procedure: PROCEDURE: PACEMAKER REVISION PREOPERATIVE DIAGNOSIS: Pacemaker elective replacement indication. POSTOPERATIVE DIAGNOSIS: Pacemaker elective replacement indication. ESTIMATED BLOOD LOSS: None COMPLICATIONS: None. BRIEF HISTORY: The patient is 88-year-old white female who had a permanent pacemaker implantation for high degree AV block/symptomatic bradycardia. The patient was found to have elective replacement indication, during routine office followup evaluation. For further management of patient's condition for the symptomatic bradycardia, the patient required a pacemaker revision. Patient required a dual-chamber pacemaker for symptom relief and the need for AV synchrony The procedure was explained to the patient and her son in detail with the risks and benefits. The risks of bleeding, hematoma, vascular injury, infection and other concomitant complications were explained in detail, which the patient understood well and consented to proceed. PROCEDURES PERFORMED: 1. Explantation of the old pacemaker generator. 2. Implantation of the new generator. The patient brought to the Cardiac Business Continuity Global Director. The left side of the neck and the subclavian area were cleaned and draped in a sterile fashion. 1% Xylocaine was used for local anesthetic agent. A 2 inch long incision was made just below the previous pacemaker scar. By sharp and blunt dissection, the pacemaker pocket was accessed. The old generator was delivered from the pocket. The generator was detached from the lead. The new Medtronic generator was attached to the lead. The pacemaker pocket was copiously irrigated with vancomycin solution. Complete hemostasis was achieved. The lead was positioned behind the generator and the generator was attached to the pectoralis fascia by suturing with 0 Surgilon. Sponge counts were confirmed. The pacemaker pocket was closed in layers. Skin was approximated using 4-0 Vicryl. EXPLANTED DEVICE: Pacemaker Generator: Brand: Adapta. Model number: [id number]. Serial number: [id number]. Date of implant: 10/05/2013 IMPLANTED DEVICES: Ventricular Lead: Date of implantation: 10/05/2013 Model number: [id number] Serial number: [id number] Make: Medtronic. Atrial lead Date of implantation: 10/05/2013 Model number: [id number] Serial number: [id number] Make: Medtronic. Implanted Generator: Date of implantation : 03/25/2024 Brand: Aspermontольга dAams. Model number: W1 DR 01 Serial number: [id number] Make: Medtronic Stimulation Threshold: The ventricular sensing was not obtained because of the pacer dependency Ventricular lead impedance was 456 ohms and the pacing threshold was 1 point volts at 0.4 milliseconds. The atrial sensing was 1.5 millivolts. Atrial lead impedance was 361 ohms and the pacing threshold was 0.5 volts at 0.4 milliseconds. The pacemaker was set for DDDR mode with an upper rate of 130 and a lower rate of 60. A pressure dressing was applied over the pacemaker site. The patient was transferred back to medical floor in stable condition. Sponge counts were correct.
--- NOTE | 2024-03-25 09:50 | PC.NURSE ---
Patient arrived from cath post pacemaker gen change. Pt alert and oriented X 4. Breathing even and non-labored on room air. Pt reports headache and jaw pain /. Dr. Campbell aware. Pressure dressing to left chest clean, dry, and intact. Pt placed on bedside cardiac catheterization technologist. Vital signs reviewed. Family at bedside.
--- NOTE | 2024-03-25 10:11 | PC.NURSE ---
Patient reports of headache 07/11. Nurse asked pt about obtaining PRN medication for headache. Reports she does not take Tylenol or Motrin at home and requests something to help her relax and verbalizes anxiety to nurse. Dr. Campbell notified and received one time order for Alprazolam 0.25mg PO once for anxiety.
[2024-03-25] MEDS: ALPRAZolam 0.5 mg Tablet 0.25 MG PO (10:26)
[2024-03-25] MEDS: prednisoLONE 1% Op Susp 5 mL Btl 1 DROP EYE-BOTH (12:00)
[2024-03-25] MEDS: sodium chloride 0.9% 1,000 ML 75 ML IV (16:45)
[2024-03-25] MEDS: ceFAZolin 2,000 mg SDV 2000 MG IVP (16:45)
[2024-03-26 00:18] VITALS: BP 178/73; PULSE 71; RESP 17; TEMP 36.7; O2SAT 95
[2024-03-26] MEDS: ceFAZolin 2,000 mg SDV 2000 MG IVP ×2 (01:52→07:56)
[2024-03-26 04:17] VITALS: BP 177/69; PULSE 81; RESP 15; TEMP 36.6; O2SAT 96
[2024-03-26 06:00] VITALS: PULSE 83
--- NOTE | 2024-03-26 06:00 | ECG_ITS ---
[facility] Test Date: 2024-03-26 Pat Name: Sebastian Mike Department: Room: 273 Gender: Female Mri Technician: : 1935 Requested By: Napoleon Campbell Order Number: [id number] Eliza MD: Napoleon Campbell M.D. Measurements Intervals [place] Rate: 83 P: 45 DE: 214 QRS: -69 QRSD: 174 T: 113 QT: 440 QTc: 518 Interpretive Statements ELECTRONIC VENTRICULAR PACEMAKER ABNORMAL RHYTHM ECG Compared to ECG 03/22/2024 13:47:30 No significant changes Electronically Signed On 03-26-2024 22:01:20 LOOP SEWER by Napoleon Campbell M.D. [email or web address]
[2024-03-26 07:26] VITALS: BP 195/65; PULSE 84; TEMP 36.9; O2SAT 93
[2024-03-26] MEDS: aspirin 325 mg Tablet 162.5 MG PO (07:56)
[2024-03-26] MEDS: amlodipine 5 mg Tablet PO (07:56)
[2024-03-26 11:43] VITALS: BP 173/71; PULSE 77; RESP 15; TEMP 36.7; O2SAT 94
[2024-03-26 13:16] VITALS: PULSE 73
--- NOTE | 2024-03-26 14:19 | PM.PN ---
Subjective Subjective: Patient had a pacemaker revision yesterday. She is admitted to hospital for IV antibiotics and monitoring. She is remaining stable with no hematoma bleeding from the pacemaker site. The vital signs are stable. He was complaining of some neck pains and back pain prior to the pacemake revision. Following this surgery, the symptoms subsided. She has not had any recurrence since then. Her blood pressure went into the 80s and 90s following IV sedation and IV hydralazine. Then the pressure started coming up. Currently the blood pressure is in the 160s and 170s. Medications: Medication Review Details: Current Medications Amlodipine Besylate (Amlodipine 5 Mg Tablet) 5 mg PO DAILY [facility] Last Admin: 03/26/24 07:56 Dose: 5 mg Aspirin (Aspirin 325 Mg Tablet) 162.5 mg PO DAILY [facility] Last Admin: 03/26/24 07:56 Dose: 162.5 mg Furosemide (Furosemide 40 Mg Tablet) 40 mg PO DAILY PRN PRN Reason: edema Loperamide HCl (Loperamide 2 Mg Capsule) 2 mg PO Q4H PRN PRN Reason: Diarrhea Nitroglycerin (Nitroglycerin 0.4 Mg Sublingual Tablet) 0.4 mg SUBLINGUAL Q5M PRN PRN Reason: Chest Pain Potassium Chloride (Potassium Chloride Er 20 Meq Tablet) 20 meq PO DAILY PRN PRN Reason: WITH LASIX Prednisolone Acetate (Prednisolone 1% Op Susp 5 Ml Btl) 1 drop EYE-BOTH QID [facility] Last Admin: 03/26/24 12:00 Dose: Not Given Prenat Multivit/[facility]/Iron/Folic Ac ( Vit No.130/Iron/Folic 1 Each Tablet) 1 each PO DAILY [facility] Last Admin: 03/26/24 07:57 Dose: Not Given Vitals/I&O/Wt Last Vital Signs Temp 98.1 F 03/26/24 11:43 Pulse 73 03/26/24 13:16 Resp 15 03/26/24 11:43 BP 173/71 03/26/24 11:43 Pulse Ox 94 03/26/24 11:43 O2 Del Method Room Air 03/26/24 11:43 03/25/24 03/26/24 03/26/24 22:59 06:59 14:59 Intake Total 843.75 / 1323.75 500 / 1823.75 1116.25 / 1116.25 Balance 843.75 / 1323.75 500 / 1823.75 1116.25 / 1116.25 Weight last 48 hrs Weight 148 lb 9.6 oz Weight 148 lb Physical Exam Narrative: GENERAL: The patient is alert and oriented times three. Not in any acute distress. HEENT: No significant pallor, icterus or lymphadenopathy.Oral cavity: There are no mucous membrane lesions. NECK: Trachea appears to be central. No masses noted. No JVD or thyromegaly appreciated. RESPIRATORY: Chest is symmetrical. No intercostals muscle retraction or any accessory muscle activation. There is no chest wall tenderness. Breath sounds are heard bilaterally. No rales or rhonchi heard. No evidence of any consolidation. The pacemaker site has no hematoma bleeding. BREASTS: Deferred. HEART: The heart sounds are normal. No S3 or S4. No significant murmurs. No pericardial rub ABDOMEN: No vessel pulsations or distention. No tenderness. No organomegaly appreciated. Bowel sounds are normally heard. : Deferred. RECTAL: Deferred. LYMPHATIC: No lymphadenopathy noted in the neck. EXTREMITIES: No edema or cyanosis. No clubbing. MUSCULOSKELETAL: No acute joint deformities or swelling SKIN: There are no significant rashes or ecchymosis NEUROPSYCHIATRIC: The patient is alert and oriented x3. Appears to be in a good mood. No tremors or rigidity noted. A&P Assessment and plan (1) Status post transcatheter aortic valve replacement (TAVR) using bioprosthesis: Since the patient has no specific symptoms of valve dysfunction, advised to continue on the current measures. Will have a follow-up evaluation as scheduled. (2) Presence of permanent cardiac pacemaker: The patient underwent a permanent pacemaker revision. Currently the pacemaker function appears to be appropriate. May continue current treatment measures. (3) Benign hypertension: For better control of blood pressure, patient advised to increase the dose of the amlodipine to 10 mg p.o. daily. Will continue to monitor blood pressure at home. (4) CHF (congestive heart failure), NYHA class III: Patient currently has no evidence of any decompensated heart failure. The symptoms are stable. Compliance to medication is appropriate. Advised to continue on the current medications for the time being. In the event of developing any unusual shortness of breath or any new symptoms, advised to contact our office Qualifiers: Congestive heart failure type: unspecified Qualified Code(s): I50.9 - Heart failure, unspecified (5) Dyslipidemia: Patient is known to have dyslipidemia. Advised to continue on the current medications. Will have the follow-up evaluation as scheduled. Patient understands the importance of dietary compliance Plan In the event of the patient developing any unusual chest pain, palpitations, SOB or any other new symptoms, advised to contact our office. I may see the patient back in the office in 5 months. Thank you for the opportunity about this patient and make these recommendations Will be seen Attestations Medical Necessity Statement*: Discharge home today. Patient was given approximately exercise by the PT Coding Level of Care Code 91912 Diagnoses Status post transcatheter aortic valve replacement (TAVR) using bioprosthesis Z95.3 Presence of permanent cardiac pacemaker Z95.0 Benign hypertension I10 Congestive heart failure, NYHA class 3, unspecified congestive heart failure type I50.9 Congestive heart failure type: unspecified Dyslipidemia E78.5 Hyperlipidemia Most Recent Cardiac Tests: Echocardiogram 08/08/23
== END 2024-03-26 15:49 | disposition home or self-care (01) ==
LOC: CCL 07:41 → MEDSURG 03-26 07:21
PROVIDERS: PCP Family Medicine; Visit Provider Internal Medicine Cardiovascular Disease
DX: Z45.010 Encounter for checking and testing of cardiac pacemaker pulse generator [battery] (principal); Z95.3 Presence of xenogenic heart valve; I11.0 Hypertensive heart disease with heart failure; I50.9 Heart failure, unspecified; E78.5 Hyperlipidemia, unspecified
CPT/HCPCS: 33228; 36415; 96365; 96374; 96375; 97165; 99152; 99153; A4216; C1769; C1786; J0360; J0690; J2250; J2371; J3010; J3370; J7030; J7050

== ENCOUNTER → 2024-04-05 09:24 | Outpatient (BNVA) | payer MEDICARE, SELFPAY | PROVIDERS: PCP Family Medicine; Visit Provider Nurse Practitioner Family | DX: I12.9 Hypertensive chronic kidney disease with stage 1 through stage 4 chronic kidney disease, or unspecified chronic kidney disease (principal); N18.9 Chronic kidney disease, unspecified; I48.91 Unspecified atrial fibrillation; I87.2 Venous insufficiency (chronic) (peripheral); Z95.0 Presence of cardiac pacemaker | CPT/HCPCS: 93280; 99214 ==

== ENCOUNTER → 2024-06-19 14:36 | Outpatient (BNVA) | payer MEDICARE, SELFPAY | PROVIDERS: PCP Family Medicine; Visit Provider Internal Medicine | DX: I35.0 Nonrheumatic aortic (valve) stenosis (principal); I25.10 Atherosclerotic heart disease of native coronary artery without angina pectoris; I50.9 Heart failure, unspecified; I73.9 Peripheral vascular disease, unspecified; I10 Essential (primary) hypertension; I44.7 Left bundle-branch block, unspecified; E78.5 Hyperlipidemia, unspecified; Z95.0 Presence of cardiac pacemaker | CPT/HCPCS: 99214 ==

== ENCOUNTER → 2024-10-17 09:21 | Outpatient (BNVA) | payer MEDICARE, SELFPAY | PROVIDERS: PCP Family Medicine; Visit Provider Internal Medicine | DX: Z45.018 Encounter for adjustment and management of other part of cardiac pacemaker (principal) | CPT/HCPCS: 93296 ==

== ENCOUNTER → 2024-12-24 14:24 | Outpatient (BNVA) | payer MEDICARE, SELFPAY | PROVIDERS: PCP Family Medicine; Visit Provider Internal Medicine | DX: I48.91 Unspecified atrial fibrillation (principal); Z79.01 Long term (current) use of anticoagulants; Z95.0 Presence of cardiac pacemaker | CPT/HCPCS: 99213 ==